=== PATIENT | female | born 1945 ===

== ENCOUNTER 2020-05-06 18:29 | Inpatient (IN) ==
[2020-05-06] MEDS ORDERED: Isovue-370 500 ML BOTTLE IVP ONE (19:25)
[2020-05-06] MEDS ORDERED: 0.9 % Sodium Chloride 500 ML IVC ONE (19:33)
[2020-05-06] MEDS ORDERED: Ondansetron 4 MG/2 ML VIAL IVP ONE (19:34)
[2020-05-06 19:41] LABS: Basophils # 0.1 K/mcL (0.0-0.2); Basophils % 0.7 %; Eosinophils # 0.1 K/mcL (0.0-0.6); Eosinophils % 1.8 %; Hematocrit 34.2 % (35.3-44.9); Immature Granulocytes % 0.6 % (0-4); Lymphocytes # 2.6 K/mcL (0.6-4.6); Lymphocytes % 37.1 %; Mean Corpuscular HGB Conc 32.2 g/dL (31.6-35.5); Mean Corpuscular Hemoglobin 30.5 pg (28.0-33.3); Mean Corpuscular Volume 94.7 fL (83.0-100.0); Mean Platelet Volume 12.8 fL (9.4-12.4); Monocytes # 0.8 K/mcL (0.0-1.3); Neutrophils # 3.5 K/mcL (1.6-8.9); Platelet Count 226 K/mcL (140-400); Red Blood Count 3.61 M/mcL (3.82-4.97); Red Cell Distribution Width 13.3 % (11.5-14.5); Segmented Neutrophils % 48.8 %; White Blood Count 7.1 K/mcL (4.3-11.1)
[2020-05-06 20:05] LABS: Alanine Aminotransferase 6 Units/L (7-52); Albumin 4.4 g/dL (3.5-5.7); Alkaline Phosphatase 41 Units/L (34-104); Aspartate Amino Transferase 9 Units/L (13-39); BUN/Creatinine Ratio 25 (6-26); Bilirubin,Total 0.4 mg/dL (0.3-1.0); Blood Urea Nitrogen 18 mg/dL (8-23); Calcium 9.3 mg/dL (8.6-10.3); Carbon Dioxide 28 mEq/L (23-29); Chloride 102 mEq/L (98-107); Globulin 2.2 g/dL (2.4-3.5); Glucose 127 mg/dL (70-105); Lipase 61 Units/L (11-82); Osmolality,Calculated 293 (280-300); Sodium 140 mEq/L (136-145); Total Protein 6.6 g/dL (6.4-8.9); Troponin I < 0.03 ng/mL (< 0.04); eGFR For African Americans > 60 (> 60); eGFR For Non-African Americans > 60 (> 60)
[2020-05-06] MEDS ORDERED: Potassium Chloride 40 MEQ, Lidocaine 1% 2 ML in 0.9 % Sodium Chloride 500 ML IVPB ONE (21:29)
[2020-05-06 21:40] LABS: Bilirubin,Urine Negative (Negative); Blood,Urine Negative (Negative); Clarity,Urine Clear (Clear); Color,Urine Light-Yellow (Yellow); Glucose,Urine (UA) Normal (Normal); Ketones,Urine 40 mg/dL (Negative); Leukocyte Esterase,Urine Negative (Negative); Nitrite,Urine Negative (Negative); PH,Urine 6.5 pH Units (5.0-8.0); Protein,Urine Negative (Neg-Trace); Specific Gravity,Urine > 1.030 (1.010-1.025); Urobilinogen,Urine Normal (Normal)
[2020-05-06] MEDS ORDERED: Naloxone 0.4 MG/ML INJ IVP PRN (23:10)
[2020-05-06] MEDS: 0.9 % Sodium Chloride 1,000 ML IVC SCH (23:37)
[2020-05-07] MEDS: traZODone 50 MG TABLET PO SCH ×2 (01:33→23:16)
[2020-05-07] MEDS: Acetaminophen 325 MG TABLET PO PRN (03:22)
[2020-05-07] MEDS: Ondansetron 4 MG/2 ML VIAL IVP PRN ×2 (03:23→17:37)
[2020-05-07 03:58] LABS: Basophils # 0.1 K/mcL (0.0-0.2); Basophils % 0.7 %; Eosinophils # 0.1 K/mcL (0.0-0.6); Eosinophils % 1.5 %; Hematocrit 28.3 % (35.3-44.9); INR 1.2; Immature Granulocytes % 0.5 % (0-4); Lymphocytes # 3.2 K/mcL (0.6-4.6); Lymphocytes % 42.6 %; Mean Corpuscular HGB Conc 31.4 g/dL (31.6-35.5); Mean Corpuscular Hemoglobin 29.4 pg (28.0-33.3); Mean Corpuscular Volume 93.4 fL (83.0-100.0); Mean Platelet Volume 12.2 fL (9.4-12.4); Monocytes # 0.7 K/mcL (0.0-1.3); Monocytes % 8.8 %; Neutrophils # 3.5 K/mcL (1.6-8.9); Nucleated Red Blood Cells 0.7 /100 WBC (0); Platelet Count 198 K/mcL (140-400); Prothrombin Time 13.2 Seconds (9.4-12.1); Red Blood Count 3.03 M/mcL (3.82-4.97); Red Cell Distribution Width 13.6 % (11.5-14.5); Segmented Neutrophils % 45.9 %; White Blood Count 7.5 K/mcL (4.3-11.1)
[2020-05-07 04:11] LABS: BUN/Creatinine Ratio 25 (6-26); Blood Urea Nitrogen 14 mg/dL (8-23); Calcium 8.2 mg/dL (8.6-10.3); Carbon Dioxide 29 mEq/L (23-29); Chloride 110 mEq/L (98-107); Glucose 106 mg/dL (70-105); Magnesium 1.9 mg/dL (1.6-2.6); Osmolality,Calculated 295 (280-300); Phosphorous 2.9 mg/dL (2.7-4.5); Potassium 3.6 mEq/L (3.5-5.1); Sodium 142 mEq/L (136-145); eGFR For African Americans > 60 (> 60); eGFR For Non-African Americans > 60 (> 60)
[2020-05-07 04:15] LABS: % Iron Saturation 9 % (15-50); Iron 20 mcg/dL (50-170); Transferrin 167 mg/dL (203-362)
[2020-05-07 04:23] LABS: Hemoglobin 8.9 g/dL (11.5-15.4)
[2020-05-07 04:27] LABS: Ferritin 24 ng/mL (10-120)
[2020-05-07 04:33] LABS: Folate 12.1 ng/mL (3.0-16.0)
[2020-05-07] MEDS ORDERED: *HR* Promethazine 25 MG/ML VIAL IVP ONE (08:13)
[2020-05-07] MEDS ORDERED: Ondansetron 4 MG/2 ML VIAL IVP ONE (08:13)
[2020-05-07] MEDS ORDERED: Temazepam 15 MG CAPSULE PO SCH (09:00)
[2020-05-07] MEDS: Gabapentin 300 MG CAPSULE PO SCH ×3 (09:03→20:01)
[2020-05-07] MEDS: Pantoprazole 40 MG VIAL IVP SCH ×2 (09:11→17:33)
[2020-05-07] MEDS: 0.9 % Sodium Chloride 1,000 ML IVC SCH (10:00)
[2020-05-07 10:13] LABS: Hematocrit 26.8 % (35.3-44.9); Hemoglobin 8.4 g/dL (11.5-15.4)
[2020-05-07 18:54] LABS: Hematocrit 25.9 % (35.3-44.9)
[2020-05-07] MEDS: Temazepam 15 MG CAPSULE PO SCH (23:19)
[2020-05-08] MEDS: Pantoprazole 40 MG VIAL IVP SCH ×2 (05:49→16:57)
[2020-05-08 06:52] LABS: Basophils % 0.5 %; Eosinophils # 0.2 K/mcL (0.0-0.6); Eosinophils % 2.9 %; Hematocrit 26.5 % (35.3-44.9); Hemoglobin 8.3 g/dL (11.5-15.4); Immature Granulocytes % 0.3 % (0-4); Lymphocytes # 3.2 K/mcL (0.6-4.6); Lymphocytes % 53.5 %; Mean Corpuscular HGB Conc 31.3 g/dL (31.6-35.5); Mean Corpuscular Hemoglobin 30.4 pg (28.0-33.3); Mean Corpuscular Volume 97.1 fL (83.0-100.0); Mean Platelet Volume 12.2 fL (9.4-12.4); Monocytes # 0.5 K/mcL (0.0-1.3); Monocytes % 8.6 %; Nucleated Red Blood Cells 0.5 /100 WBC (0); Platelet Count 187 K/mcL (140-400); Red Blood Count 2.73 M/mcL (3.82-4.97); Red Cell Distribution Width 14.1 % (11.5-14.5); Segmented Neutrophils % 34.2 %; White Blood Count 5.9 K/mcL (4.3-11.1)
[2020-05-08 07:06] LABS: BUN/Creatinine Ratio 9 (6-26); Blood Urea Nitrogen 6 mg/dL (8-23); Calcium 8.4 mg/dL (8.6-10.3); Carbon Dioxide 27 mEq/L (23-29); Chloride 113 mEq/L (98-107); Glucose 99 mg/dL (70-105); Osmolality,Calculated 296 (280-300); Phosphorous 3.4 mg/dL (2.7-4.5); Potassium 3.2 mEq/L (3.5-5.1); Sodium 144 mEq/L (136-145); eGFR For African Americans > 60 (> 60); eGFR For Non-African Americans > 60 (> 60)
[2020-05-08] MEDS ORDERED: Fluticasone Propionate Nasal 50 MCG/SPRAY BOTTLE NS PRN (07:52)
[2020-05-08] MEDS ORDERED: Iron Sucrose Complex 200 MG in 0.9 % Sodium Chloride 100 ML IVPB ONE (07:55)
[2020-05-08] MEDS ORDERED: Cyanocobalamin (B-12) 1,000 MCG/ML VIAL IM ONE (07:56)
[2020-05-08] MEDS: Ascorbic Acid 500 MG TABLET PO SCH (09:07)
[2020-05-08] MEDS: Gabapentin 300 MG CAPSULE PO SCH ×3 (09:13→20:56)
[2020-05-08] MEDS ORDERED: Potassium Chloride Elixir 20 MEQ/15 ML UDC PO ONE (09:28)
[2020-05-08 09:44] LABS: Immature Reticulocyte % 41.6 % (11.0-38.0); Retculocyte # 0.18 M/mcL (0.05-0.10); Reticulocyte % 6.3 % (1.6-2.8)
[2020-05-08] MEDS ORDERED: *HR* Propofol 200 MG/20 ML VIAL IVP ONE (09:50)
[2020-05-08 09:58] LABS: Lactate Dehydrogenase 142 Units/L (140-271)
[2020-05-08 12:17] LABS: Triglycerides 81 mg/dL (< 150)
[2020-05-08] MEDS ORDERED: *HR* Dextrose 50 % in Water (Vial) 50 ML VIAL IVP PRN (12:35)
[2020-05-08] MEDS ORDERED: Dextrose Gel 15 GM/37.5 ML TUBE PO PRN ×2 (12:35)
[2020-05-08] MEDS ORDERED: D5% in Water 1,000 ML IVC PRN (12:35)
[2020-05-08] MEDS ORDERED: D10% in Water 500 ML IVC PRN (12:44)
[2020-05-08] MEDS ORDERED: Lidocaine -MPF 1% 5 ML AMPUL INFILT ONE (13:42)
[2020-05-08] MEDS: Insulin LISPRO 300 UNITS/3 ML VIAL SQ SCH ×3 (13:46→21:36)
[2020-05-08] MEDS ORDERED: Clinimix E 5%-15% SOLUTION 2,000 ML with MVI, adult with vitamin K 10 ML IVC SCH (17:00)
[2020-05-08] MEDS: traZODone 50 MG TABLET PO SCH (20:56)
[2020-05-08] MEDS: Temazepam 15 MG CAPSULE PO SCH (20:56)
[2020-05-09] MEDS: Insulin LISPRO 300 UNITS/3 ML VIAL SQ SCH ×6 (00:29→20:37)
[2020-05-09] MEDS: Acetaminophen 325 MG TABLET PO PRN ×2 (01:50→21:54)
[2020-05-09 02:29] LABS: Basophils % 0.4 %; Eosinophils % 0.2 %; Hemoglobin 8.9 g/dL (11.5-15.4); Immature Granulocytes % 1.5 % (0-4); Lymphocytes % 12.1 %; Mean Corpuscular HGB Conc 31.8 g/dL (31.6-35.5); Mean Corpuscular Hemoglobin 30.6 pg (28.0-33.3); Mean Corpuscular Volume 96.2 fL (83.0-100.0); Mean Platelet Volume 12.6 fL (9.4-12.4); Monocytes # 0.6 K/mcL (0.0-1.3); Monocytes % 7.1 %; Neutrophils # 6.6 K/mcL (1.6-8.9); Nucleated Red Blood Cells 1.7 /100 WBC (0); Platelet Count 218 K/mcL (140-400); Red Blood Count 2.91 M/mcL (3.82-4.97); Red Cell Distribution Width 14.1 % (11.5-14.5); Segmented Neutrophils % 78.7 %; White Blood Count 8.4 K/mcL (4.3-11.1)
[2020-05-09 02:47] LABS: BUN/Creatinine Ratio 13 (6-26); Blood Urea Nitrogen 8 mg/dL (8-23); Calcium 8.4 mg/dL (8.6-10.3); Carbon Dioxide 29 mEq/L (23-29); Chloride 106 mEq/L (98-107); Glucose 135 mg/dL (70-105); Magnesium 1.9 mg/dL (1.6-2.6); Osmolality,Calculated 294 (280-300); Phosphorous 3.5 mg/dL (2.7-4.5); Sodium 142 mEq/L (136-145); eGFR For African Americans > 60 (> 60); eGFR For Non-African Americans > 60 (> 60)
[2020-05-09] MEDS: Pantoprazole 40 MG VIAL IVP SCH ×2 (05:06→16:55)
[2020-05-09] MEDS: Cholecalciferol (D-3) 1,000 UNIT (25MCG) TABLET PO SCH (11:14)
[2020-05-09] MEDS: Gabapentin 300 MG CAPSULE PO SCH ×3 (11:14→20:46)
[2020-05-09] MEDS: Ascorbic Acid 500 MG TABLET PO SCH (11:14)
[2020-05-09] MEDS ORDERED: Clinimix E 5%-15% SOLUTION 2,000 ML with MVI, adult with vitamin K 10 ML IVC SCH (17:00)
[2020-05-09] MEDS: Temazepam 15 MG CAPSULE PO SCH (20:46)
[2020-05-09] MEDS: traZODone 50 MG TABLET PO SCH (20:47)
[2020-05-09] MEDS: Topiramate 25 MG TABLET PO PRN (20:50)
[2020-05-10] MEDS: Insulin LISPRO 300 UNITS/3 ML VIAL SQ SCH ×6 (01:05→21:31)
[2020-05-10 04:12] LABS: BUN/Creatinine Ratio 30 (6-26); Blood Urea Nitrogen 14 mg/dL (8-23); Calcium 8.1 mg/dL (8.6-10.3); Carbon Dioxide 29 mEq/L (23-29); Chloride 108 mEq/L (98-107); Glucose 90 mg/dL (70-105); Osmolality,Calculated 298 (280-300); Phosphorous 4.9 mg/dL (2.7-4.5); Potassium 3.5 mEq/L (3.5-5.1); Sodium 144 mEq/L (136-145); eGFR For African Americans > 60 (> 60); eGFR For Non-African Americans > 60 (> 60)
[2020-05-10] MEDS: Pantoprazole 40 MG VIAL IVP SCH ×2 (05:51→17:34)
[2020-05-10] MEDS: Gabapentin 300 MG CAPSULE PO SCH ×3 (08:01→21:34)
[2020-05-10] MEDS: Cholecalciferol (D-3) 1,000 UNIT (25MCG) TABLET PO SCH (08:01)
[2020-05-10] MEDS: Ascorbic Acid 500 MG TABLET PO SCH (08:01)
[2020-05-10] MEDS ORDERED: Iron Sucrose Complex 400 MG in 0.9 % Sodium Chloride 250 ML IVPB ONE (12:03)
[2020-05-10] MEDS ORDERED: Cyanocobalamin (B-12) 1,000 MCG/ML VIAL SQ ONE (12:03)
[2020-05-10] MEDS ORDERED: Clinimix 5%-20% SOLUTION 2,000 ML with MVI, adult with vitamin K 10 ML, Sodium Chlori... IVC SCH (17:00)
[2020-05-10] MEDS: traZODone 50 MG TABLET PO SCH (21:33)
[2020-05-10] MEDS: Temazepam 15 MG CAPSULE PO SCH (21:33)
[2020-05-11] MEDS: Insulin LISPRO 300 UNITS/3 ML VIAL SQ SCH ×6 (00:47→22:00)
[2020-05-11 04:03] LABS: Basophils % 0.4 %; Eosinophils # 0.1 K/mcL (0.0-0.6); Eosinophils % 2.6 %; Hematocrit 29.1 % (35.3-44.9); Immature Granulocytes % 0.8 % (0-4); Lymphocytes # 2.2 K/mcL (0.6-4.6); Lymphocytes % 43.6 %; Mean Corpuscular HGB Conc 30.9 g/dL (31.6-35.5); Mean Corpuscular Hemoglobin 29.6 pg (28.0-33.3); Mean Corpuscular Volume 95.7 fL (83.0-100.0); Mean Platelet Volume 12.4 fL (9.4-12.4); Monocytes # 0.5 K/mcL (0.0-1.3); Monocytes % 10.8 %; Neutrophils # 2.1 K/mcL (1.6-8.9); Nucleated Red Blood Cells 0.8 /100 WBC (0); Platelet Count 200 K/mcL (140-400); Red Blood Count 3.04 M/mcL (3.82-4.97); Red Cell Distribution Width 14.7 % (11.5-14.5); Segmented Neutrophils % 41.8 %
[2020-05-11 04:21] LABS: BUN/Creatinine Ratio 35 (6-26); Blood Urea Nitrogen 16 mg/dL (8-23); Calcium 8.4 mg/dL (8.6-10.3); Carbon Dioxide 30 mEq/L (23-29); Chloride 105 mEq/L (98-107); Glucose 114 mg/dL (70-105); Magnesium 2.3 mg/dL (1.6-2.6); Osmolality,Calculated 298 (280-300); Phosphorous 4.4 mg/dL (2.7-4.5); Potassium 3.4 mEq/L (3.5-5.1); Sodium 143 mEq/L (136-145); eGFR For African Americans > 60 (> 60); eGFR For Non-African Americans > 60 (> 60)
[2020-05-11] MEDS: Pantoprazole 40 MG VIAL IVP SCH ×2 (06:04→17:37)
[2020-05-11] MEDS: Cholecalciferol (D-3) 1,000 UNIT (25MCG) TABLET PO SCH (07:10)
[2020-05-11] MEDS: Acetaminophen 325 MG TABLET PO PRN (07:10)
[2020-05-11] MEDS: Gabapentin 300 MG CAPSULE PO SCH ×3 (07:11→21:56)
[2020-05-11] MEDS: Ascorbic Acid 500 MG TABLET PO SCH (07:11)
[2020-05-11] MEDS ORDERED: Potassium Chloride 20 MEQ, Lidocaine 1% 2 ML in 0.9 % Sodium Chloride 250 ML IVPB ONE (07:38)
[2020-05-11] MEDS ORDERED: Clinimix 5%-20% SOLUTION 2,000 ML with MVI, adult with vitamin K 10 ML, Sodium Chlori... IVC SCH (17:00)
[2020-05-11] MEDS: traZODone 50 MG TABLET PO SCH (21:57)
[2020-05-11] MEDS: Temazepam 15 MG CAPSULE PO SCH (21:59)
[2020-05-12] MEDS: Insulin LISPRO 300 UNITS/3 ML VIAL SQ SCH ×6 (00:52→20:44)
[2020-05-12] MEDS: Acetaminophen 325 MG TABLET PO PRN (02:02)
[2020-05-12 05:15] LABS: Basophils % 0.9 %; Eosinophils # 0.2 K/mcL (0.0-0.6); Eosinophils % 3.2 %; Hematocrit 29.9 % (35.3-44.9); Hemoglobin 9.3 g/dL (11.5-15.4); Immature Granulocytes % 0.6 % (0-4); Lymphocytes % 43.8 %; Mean Corpuscular HGB Conc 31.1 g/dL (31.6-35.5); Mean Corpuscular Volume 96.5 fL (83.0-100.0); Mean Platelet Volume 12.6 fL (9.4-12.4); Monocytes # 0.5 K/mcL (0.0-1.3); Monocytes % 11.2 %; Neutrophils # 1.9 K/mcL (1.6-8.9); Platelet Count 188 K/mcL (140-400); Red Cell Distribution Width 14.9 % (11.5-14.5); Segmented Neutrophils % 40.3 %; White Blood Count 4.6 K/mcL (4.3-11.1)
[2020-05-12 05:30] LABS: BUN/Creatinine Ratio 42 (6-26); Blood Urea Nitrogen 19 mg/dL (8-23); Calcium 8.4 mg/dL (8.6-10.3); Carbon Dioxide 25 mEq/L (23-29); Chloride 108 mEq/L (98-107); Glucose 128 mg/dL (70-105); Magnesium 2.2 mg/dL (1.6-2.6); Osmolality,Calculated 294 (280-300); Phosphorous 3.7 mg/dL (2.7-4.5); Potassium 3.6 mEq/L (3.5-5.1); Sodium 140 mEq/L (136-145); eGFR For African Americans > 60 (> 60); eGFR For Non-African Americans > 60 (> 60)
[2020-05-12] MEDS: Topiramate 25 MG TABLET PO PRN ×2 (05:50→19:55)
[2020-05-12] MEDS: Pantoprazole 40 MG VIAL IVP SCH ×2 (05:50→16:21)
[2020-05-12] MEDS: Ascorbic Acid 500 MG TABLET PO SCH (07:55)
[2020-05-12] MEDS: Gabapentin 300 MG CAPSULE PO SCH ×3 (07:55→19:55)
[2020-05-12] MEDS: Cholecalciferol (D-3) 1,000 UNIT (25MCG) TABLET PO SCH (07:55)
[2020-05-12] MEDS ORDERED: Clinimix 5%-20% SOLUTION 2,000 ML with MVI, adult with vitamin K 10 ML, Sodium Chlori... IVC SCH (17:00)
[2020-05-12] MEDS: Temazepam 15 MG CAPSULE PO SCH (19:55)
[2020-05-12] MEDS: traZODone 50 MG TABLET PO SCH (19:55)
[2020-05-13] MEDS: Insulin LISPRO 300 UNITS/3 ML VIAL SQ SCH ×6 (00:35→23:19)
[2020-05-13 04:21] LABS: Basophils # 0.1 K/mcL (0.0-0.2); Basophils % 0.9 %; Eosinophils # 0.2 K/mcL (0.0-0.6); Eosinophils % 3.6 %; Hematocrit 31.7 % (35.3-44.9); Hemoglobin 9.8 g/dL (11.5-15.4); Immature Granulocytes % 0.9 % (0-4); Lymphocytes # 2.1 K/mcL (0.6-4.6); Lymphocytes % 38.7 %; Mean Corpuscular HGB Conc 30.9 g/dL (31.6-35.5); Mean Corpuscular Volume 96.9 fL (83.0-100.0); Mean Platelet Volume 12.9 fL (9.4-12.4); Monocytes # 0.9 K/mcL (0.0-1.3); Monocytes % 15.9 %; Neutrophils # 2.1 K/mcL (1.6-8.9); Nucleated Red Blood Cells 0.6 /100 WBC (0); Platelet Count 182 K/mcL (140-400); Red Blood Count 3.27 M/mcL (3.82-4.97); Red Cell Distribution Width 14.6 % (11.5-14.5); White Blood Count 5.4 K/mcL (4.3-11.1)
[2020-05-13 04:22] LABS: BUN/Creatinine Ratio 45 (6-26); Blood Urea Nitrogen 22 mg/dL (8-23); Calcium 8.5 mg/dL (8.6-10.3); Carbon Dioxide 25 mEq/L (23-29); Chloride 107 mEq/L (98-107); Glucose 72 mg/dL (70-105); Magnesium 2.2 mg/dL (1.6-2.6); Osmolality,Calculated 292 (280-300); Phosphorous 3.3 mg/dL (2.7-4.5); Potassium 3.8 mEq/L (3.5-5.1); Sodium 140 mEq/L (136-145); eGFR For African Americans > 60 (> 60); eGFR For Non-African Americans > 60 (> 60)
[2020-05-13] MEDS: Pantoprazole 40 MG VIAL IVP SCH ×2 (05:24→17:07)
[2020-05-13] MEDS ORDERED: *HR* HYDROmorphone PF 0.5 MG/0.5 ML SYRINGE IVP PRN (07:14)
[2020-05-13] MEDS ORDERED: *HR* Promethazine 25 MG/ML VIAL IVP PRN (07:14)
[2020-05-13] MEDS ORDERED: *HR* OxyCODONE Immed Rel 5 MG TABLET PO PRN (07:14)
[2020-05-13] MEDS ORDERED: Ondansetron 4 MG/2 ML VIAL IVP ONE (07:14)
[2020-05-13] MEDS: Gabapentin 300 MG CAPSULE PO SCH (07:37)
[2020-05-13] MEDS: Cholecalciferol (D-3) 1,000 UNIT (25MCG) TABLET PO SCH (07:38)
[2020-05-13] MEDS: Ascorbic Acid 500 MG TABLET PO SCH (07:38)
[2020-05-13] MEDS: Ringers Solution, Lactated 1,000 ML IVC ONE ×2 (08:37→09:31)
[2020-05-13] MEDS ORDERED: Clindamycin 900 MG/50 ML 900 MG/50 ML IV.SOLN IVPB ONE ×2 (08:40→08:59)
[2020-05-13] MEDS ORDERED: Lidocaine -MPF 2% 2 ML VIAL ONE (09:28)
[2020-05-13] MEDS ORDERED: *HR* Midazolam HCl 2 MG/2 ML VIAL ONE (09:28)
[2020-05-13] MEDS ORDERED: *HR* Propofol 200 MG/20 ML VIAL IVP ONE (09:28)
[2020-05-13] MEDS ORDERED: *HR* Rocuronium Bromide 50 MG/5 ML VIAL ONE (09:28)
[2020-05-13] MEDS ORDERED: *HR* FentaNYL (PF) 100 MCG/2 ML VIAL ONE (09:28)
[2020-05-13] MEDS ORDERED: *HR* PHENYLEPHRINE 1,000 MCG/10 ML SYRINGE IVP ONE (09:29)
[2020-05-13] MEDS ORDERED: Dextrose Gel 15 GM/37.5 ML TUBE PO PRN ×2 (10:43)
[2020-05-13] MEDS ORDERED: Ondansetron 4 MG/2 ML VIAL IVP PRN (10:43)
[2020-05-13] MEDS ORDERED: Naloxone 0.4 MG/ML INJ IVP PRN (10:43)
[2020-05-13] MEDS ORDERED: Clinimix 5%-20% SOLUTION 2,000 ML with MVI, adult with vitamin K 10 ML, Sodium Chlori... IVC SCH (10:43)
[2020-05-13] MEDS ORDERED: D5% in Water 1,000 ML IVC PRN (10:43)
[2020-05-13] MEDS ORDERED: Fluticasone Propionate Nasal 50 MCG/SPRAY BOTTLE NS PRN (10:43)
[2020-05-13] MEDS ORDERED: D10% in Water 500 ML IVC PRN (10:43)
[2020-05-13] MEDS ORDERED: *HR* Dextrose 50 % in Water (Vial) 50 ML VIAL IVP PRN (10:43)
[2020-05-13] MEDS ORDERED: *HR* FentaNYL (PF) 100 MCG/2 ML VIAL IVP ONE (11:40)
[2020-05-13] MEDS: Acetaminophen IV 1,000 MG/100 ML INFUS..BTL IVPB SCH ×2 (11:56→17:21)
[2020-05-13] MEDS ORDERED: Clinimix E 5%-20% SOLUTION 2,000 ML with MVI, adult with vitamin K 10 ML, Trace Eleme... IVC SCH ×2 (17:00)
[2020-05-13] MEDS: *HR* Heparin 5,000 UNIT/ML VIAL SQ SCH (17:06)
[2020-05-13] MEDS ORDERED: Chloraseptic Spray 177 ML BOTTLE MM PRN (23:47)
[2020-05-14] MEDS: Acetaminophen IV 1,000 MG/100 ML INFUS..BTL IVPB SCH ×4 (00:42→17:44)
[2020-05-14] MEDS: Insulin LISPRO 300 UNITS/3 ML VIAL SQ SCH ×6 (00:47→21:33)
[2020-05-14 05:16] LABS: BUN/Creatinine Ratio 44 (6-26); Blood Urea Nitrogen 20 mg/dL (8-23); Calcium 8.2 mg/dL (8.6-10.3); Carbon Dioxide 24 mEq/L (23-29); Chloride 104 mEq/L (98-107); Glucose 117 mg/dL (70-105); Magnesium 1.8 mg/dL (1.6-2.6); Osmolality,Calculated 286 (280-300); Phosphorous 2.6 mg/dL (2.7-4.5); Potassium 3.3 mEq/L (3.5-5.1); Sodium 136 mEq/L (136-145); eGFR For African Americans > 60 (> 60); eGFR For Non-African Americans > 60 (> 60)
[2020-05-14] MEDS: *HR* Heparin 5,000 UNIT/ML VIAL SQ SCH ×2 (06:11→17:39)
[2020-05-14] MEDS: Pantoprazole 40 MG VIAL IVP SCH ×2 (06:11→17:40)
[2020-05-14] MEDS ORDERED: Saliva Stimulant 100ml BOTTLE PO PRN (08:47)
[2020-05-14] MEDS: Ketorolac 15 MG/ML VIAL IVP SCH ×2 (11:22→17:39)
[2020-05-14] MEDS ORDERED: Clinimix E 5%-20% SOLUTION 2,000 ML with MVI, adult with vitamin K 10 ML, Trace Eleme... IVC SCH (17:00)
[2020-05-15] MEDS: Acetaminophen IV 1,000 MG/100 ML INFUS..BTL IVPB SCH ×6 (00:56→23:38)
[2020-05-15] MEDS: Ketorolac 15 MG/ML VIAL IVP SCH ×5 (01:01→23:35)
[2020-05-15] MEDS: Insulin LISPRO 300 UNITS/3 ML VIAL SQ SCH ×6 (01:01→20:59)
[2020-05-15 01:44] LABS: Basophils % 0.1 %; Eosinophils % 0.1 %; Hematocrit 32.3 % (35.3-44.9); Hemoglobin 10.1 g/dL (11.5-15.4); Immature Granulocytes % 0.1 % (0-4); Lymphocytes # 0.7 K/mcL (0.6-4.6); Mean Corpuscular HGB Conc 31.3 g/dL (31.6-35.5); Mean Corpuscular Hemoglobin 29.8 pg (28.0-33.3); Mean Corpuscular Volume 95.3 fL (83.0-100.0); Mean Platelet Volume 13.4 fL (9.4-12.4); Monocytes # 1.5 K/mcL (0.0-1.3); Monocytes % 17.9 %; Neutrophils # 6.1 K/mcL (1.6-8.9); Nucleated Red Blood Cells 0.2 /100 WBC (0); Platelet Count 181 K/mcL (140-400); Red Blood Count 3.39 M/mcL (3.82-4.97); Red Cell Distribution Width 14.7 % (11.5-14.5); Segmented Neutrophils % 73.8 %; White Blood Count 8.3 K/mcL (4.3-11.1)
[2020-05-15 01:59] LABS: BUN/Creatinine Ratio 42 (6-26); Blood Urea Nitrogen 20 mg/dL (8-23); Calcium 7.9 mg/dL (8.6-10.3); Carbon Dioxide 25 mEq/L (23-29); Chloride 102 mEq/L (98-107); Glucose 131 mg/dL (70-105); Magnesium 1.8 mg/dL (1.6-2.6); Osmolality,Calculated 282 (280-300); Potassium 3.4 mEq/L (3.5-5.1); Sodium 134 mEq/L (136-145); eGFR For African Americans > 60 (> 60); eGFR For Non-African Americans > 60 (> 60)
[2020-05-15 02:05] LABS: Platelet Estimate Normal (Normal)
[2020-05-15] MEDS: Pantoprazole 40 MG VIAL IVP SCH ×2 (05:41→17:39)
[2020-05-15] MEDS: *HR* Heparin 5,000 UNIT/ML VIAL SQ SCH ×2 (05:42→17:38)
[2020-05-15] MEDS ORDERED: Potassium Chloride 20 MEQ, Lidocaine 1% 2 ML in 0.9 % Sodium Chloride 250 ML IVPB ONE (07:55)
[2020-05-15] MEDS ORDERED: 0.9 % Sodium Chloride 500 ML IV ONE ×2 (12:55→18:17)
[2020-05-15] MEDS ORDERED: Clinimix E 5%-20% SOLUTION 2,000 ML with MVI, adult with vitamin K 10 ML, Trace Eleme... IVC SCH (17:00)
[2020-05-16] MEDS: Insulin LISPRO 300 UNITS/3 ML VIAL SQ SCH ×6 (00:06→23:39)
[2020-05-16 03:24] LABS: Basophils % 0.3 %; Immature Granulocytes % 0.6 % (0-4); Mean Corpuscular HGB Conc 31.2 g/dL (31.6-35.5); Mean Corpuscular Hemoglobin 29.8 pg (28.0-33.3); Mean Corpuscular Volume 95.5 fL (83.0-100.0); Mean Platelet Volume 13.7 fL (9.4-12.4); Segmented Neutrophils % 68.1 %
[2020-05-16 03:26] LABS: Eosinophils # 0.2 K/mcL (0.0-0.6); Eosinophils % 2.4 %; Hematocrit 27.6 % (35.3-44.9); Hemoglobin 8.6 g/dL (11.5-15.4); Immature Platelets 20.5 % (1.1-6.1); Lymphocytes # 0.8 K/mcL (0.6-4.6); Lymphocytes % 12.2 %; Monocytes # 1.1 K/mcL (0.0-1.3); Monocytes % 16.4 %; Neutrophils # 4.4 K/mcL (1.6-8.9); Platelet Count 170 K/mcL (140-400); Red Blood Count 2.89 M/mcL (3.82-4.97); White Blood Count 6.5 K/mcL (4.3-11.1)
[2020-05-16 03:39] LABS: Large Platelets Present (Not Present); Platelet Estimate Normal (Normal); Polychromasia 1+ (Not Present)
[2020-05-16 03:43] LABS: BUN/Creatinine Ratio 37 (6-26); Blood Urea Nitrogen 22 mg/dL (8-23); Calcium 8.1 mg/dL (8.6-10.3); Carbon Dioxide 26 mEq/L (23-29); Chloride 104 mEq/L (98-107); Glucose 161 mg/dL (70-105); Magnesium 1.9 mg/dL (1.6-2.6); Osmolality,Calculated 289 (280-300); Phosphorous 3.1 mg/dL (2.7-4.5); Potassium 3.4 mEq/L (3.5-5.1); Sodium 136 mEq/L (136-145); eGFR For African Americans > 60 (> 60); eGFR For Non-African Americans > 60 (> 60)
[2020-05-16] MEDS: Ketorolac 15 MG/ML VIAL IVP SCH (05:39)
[2020-05-16] MEDS: *HR* Heparin 5,000 UNIT/ML VIAL SQ SCH (05:45)
[2020-05-16] MEDS: Acetaminophen IV 1,000 MG/100 ML INFUS..BTL IVPB SCH ×3 (05:45→18:07)
[2020-05-16] MEDS: Pantoprazole 40 MG VIAL IVP SCH ×2 (05:48→18:04)
[2020-05-16] MEDS ORDERED: 0.9 % Sodium Chloride 500 ML IVC ONE (07:29)
[2020-05-16] MEDS ORDERED: Potassium Chloride 20 MEQ, Lidocaine 1% 2 ML in 0.9 % Sodium Chloride 250 ML IVPB ONE (07:46)
[2020-05-16] MEDS ORDERED: *HR* Metoprolol 5 MG/5 ML VIAL IVP ONE (12:25)
[2020-05-16 12:35] LABS: Hematocrit 27.9 % (35.3-44.9); Hemoglobin 8.4 g/dL (11.5-15.4)
[2020-05-16] MEDS: Isovue-370 500 ML BOTTLE IVP ONE ×2 (13:48→13:53)
[2020-05-16] MEDS ORDERED: 0.9 % Sodium Chloride 1,000 ML IV ONE (15:09)
[2020-05-16] MEDS ORDERED: Clinimix E 5%-20% SOLUTION 2,000 ML with MVI, adult with vitamin K 10 ML, Trace Eleme... IVC SCH (17:00)
[2020-05-16 18:02] LABS: Bilirubin,Urine Negative (Negative); Blood,Urine Trace (Negative); Clarity,Urine Clear (Clear); Color,Urine Light-Yellow (Yellow); Glucose,Urine (UA) Normal (Normal); Ketones,Urine Negative (Negative); Leukocyte Esterase,Urine Trace (Negative); Mucus,Urine Few per lpf (None-Few); Nitrite,Urine Negative (Negative); PH,Urine 6.5 pH Units (5.0-8.0); Protein,Urine 70 mg/dL (Neg-Trace); Specific Gravity,Urine > 1.030 (1.010-1.025); Urobilinogen,Urine Normal (Normal)
[2020-05-16] MEDS: *HR* LORazepam 2 MG/ML VIAL IVP PRN (21:34)
[2020-05-16] MEDS: 0.9 % Sodium Chloride 1,000 ML IVC SCH (21:37)
[2020-05-17] MEDS: Acetaminophen IV 1,000 MG/100 ML INFUS..BTL IVPB SCH ×4 (00:51→17:45)
[2020-05-17] MEDS: MetroNIDAZOLE 500 MG/100 ML 500 MG/100 ML BAG IVPB SCH ×3 (00:55→17:13)
[2020-05-17] MEDS: Insulin LISPRO 300 UNITS/3 ML VIAL SQ SCH ×6 (01:00→20:33)
[2020-05-17 04:30] LABS: Red Cell Distribution Width 15.1 % (11.5-14.5)
[2020-05-17 04:32] LABS: Basophils % 0.3 %; Immature Platelets 16.4 % (1.1-6.1)
[2020-05-17 04:46] LABS: BUN/Creatinine Ratio 33 (6-26); Blood Urea Nitrogen 17 mg/dL (8-23); Calcium 7.6 mg/dL (8.6-10.3); Carbon Dioxide 25 mEq/L (23-29); Chloride 106 mEq/L (98-107); Glucose 94 mg/dL (70-105); Magnesium 1.8 mg/dL (1.6-2.6); Osmolality,Calculated 285 (280-300); Phosphorous 3.4 mg/dL (2.7-4.5); Potassium 3.4 mEq/L (3.5-5.1); Sodium 137 mEq/L (136-145); eGFR For African Americans > 60 (> 60); eGFR For Non-African Americans > 60 (> 60)
[2020-05-17 05:06] LABS: Eosinophils # 0.2 K/mcL (0.0-0.6); Eosinophils % 3.2 %; Hematocrit 23.6 % (35.3-44.9); Hemoglobin 7.1 g/dL (11.5-15.4); Immature Granulocytes % 0.9 % (0-4); Lymphocytes # 1.1 K/mcL (0.6-4.6); Lymphocytes % 16.5 %; Mean Corpuscular HGB Conc 30.1 g/dL (31.6-35.5); Mean Corpuscular Hemoglobin 29.5 pg (28.0-33.3); Mean Corpuscular Volume 97.9 fL (83.0-100.0); Mean Platelet Volume 13.5 fL (9.4-12.4); Monocytes # 0.9 K/mcL (0.0-1.3); Neutrophils # 4.2 K/mcL (1.6-8.9); Nucleated Red Blood Cells 0.8 /100 WBC (0); Platelet Count 182 K/mcL (140-400); Red Blood Count 2.41 M/mcL (3.82-4.97); Segmented Neutrophils % 65.1 %; White Blood Count 6.5 K/mcL (4.3-11.1)
[2020-05-17 05:10] LABS: Large Platelets Present (Not Present); Platelet Estimate Normal (Normal); Polychromasia 1+ (Not Present)
[2020-05-17] MEDS: Pantoprazole 40 MG VIAL IVP SCH ×2 (05:46→17:08)
[2020-05-17] MEDS: *HR* LORazepam 2 MG/ML VIAL IVP PRN (08:00)
[2020-05-17] MEDS ORDERED: Potassium Chloride 20 MEQ, Lidocaine 1% 2 ML in 0.9 % Sodium Chloride 250 ML IVPB ONE (08:04)
[2020-05-17] MEDS ORDERED: NON-FORMULARY MEDICATION 1 EACH EACH (Duloxetine Hcl 60 MG) PO SCH (09:00)
[2020-05-17] MEDS ORDERED: 0.9 % Sodium Chloride 250 ML ONE ×2 (09:47→20:23)
[2020-05-17] MEDS: 0.9 % Sodium Chloride 1,000 ML IVC SCH ×2 (10:00→17:12)
[2020-05-17] MEDS ORDERED: 0.9 % Sodium Chloride 500 ML IVC ONE (10:57)
[2020-05-17] MEDS ORDERED: Calcium Gluconate 1gm/50mL 1 GM/50 ML BAG IVPB ONE (12:42)
[2020-05-17 14:26] LABS: Hemoglobin 7.9 g/dL (11.5-15.4)
[2020-05-17] MEDS ORDERED: Clinimix E 5%-20% SOLUTION 2,000 ML with MVI, adult with vitamin K 10 ML, Trace Eleme... IVC SCH (17:00)
[2020-05-17] MEDS ORDERED: *HR* Metoprolol 5 MG/5 ML VIAL IVP ONE ×2 (21:57→23:45)
[2020-05-18] MEDS: MetroNIDAZOLE 500 MG/100 ML 500 MG/100 ML BAG IVPB SCH ×3 (00:43→17:14)
[2020-05-18] MEDS: Acetaminophen IV 1,000 MG/100 ML INFUS..BTL IVPB SCH ×4 (00:44→18:13)
[2020-05-18] MEDS: Insulin LISPRO 300 UNITS/3 ML VIAL SQ SCH ×6 (00:45→20:03)
[2020-05-18] MEDS ORDERED: *HR* Metoprolol 5 MG/5 ML VIAL IVP ONE (01:49)
[2020-05-18] MEDS: 0.9 % Sodium Chloride 1,000 ML IVC SCH ×2 (04:03→14:19)
[2020-05-18 04:43] LABS: Basophils % 0.4 %; Eosinophils # 0.2 K/mcL (0.0-0.6); Eosinophils % 2.9 %; Hematocrit 28.2 % (35.3-44.9); Hemoglobin 8.9 g/dL (11.5-15.4); Immature Granulocytes % 3.9 % (0-4); Lymphocytes # 0.9 K/mcL (0.6-4.6); Lymphocytes % 13.5 %; Mean Corpuscular HGB Conc 31.6 g/dL (31.6-35.5); Mean Corpuscular Hemoglobin 29.3 pg (28.0-33.3); Mean Corpuscular Volume 92.8 fL (83.0-100.0); Mean Platelet Volume 12.7 fL (9.4-12.4); Monocytes # 1.2 K/mcL (0.0-1.3); Neutrophils # 4.4 K/mcL (1.6-8.9); Nucleated Red Blood Cells 0.4 /100 WBC (0); Platelet Count 181 K/mcL (140-400); Red Blood Count 3.04 M/mcL (3.82-4.97); Red Cell Distribution Width 15.5 % (11.5-14.5); Segmented Neutrophils % 62.3 %
[2020-05-18 05:04] LABS: BUN/Creatinine Ratio 30 (6-26); Blood Urea Nitrogen 13 mg/dL (8-23); Calcium 7.4 mg/dL (8.6-10.3); Carbon Dioxide 24 mEq/L (23-29); Chloride 104 mEq/L (98-107); Glucose 102 mg/dL (70-105); Magnesium 1.8 mg/dL (1.6-2.6); Osmolality,Calculated 282 (280-300); Phosphorous 4.3 mg/dL (2.7-4.5); Potassium 3.2 mEq/L (3.5-5.1); Sodium 136 mEq/L (136-145); eGFR For African Americans > 60 (> 60); eGFR For Non-African Americans > 60 (> 60)
[2020-05-18] MEDS: Pantoprazole 40 MG VIAL IVP SCH ×2 (06:25→17:13)
[2020-05-18] MEDS ORDERED: Potassium Chloride 40 MEQ, Lidocaine 1% 2 ML in 0.9 % Sodium Chloride 500 ML IVPB ONE ×2 (06:28→07:34)
[2020-05-18] MEDS ORDERED: Calcium Gluconate 1gm/50mL 1 GM/50 ML BAG IVPB SCH (08:00)
[2020-05-18] MEDS: Calcium Gluconate 1gm/50mL 1 GM/50 ML BAG IVPB SCH ×2 (08:12→09:52)
[2020-05-18] MEDS ORDERED: Metoprolol XL (24 HR) Succ 25 MG TAB.ER.24H PO SCH (11:30)
[2020-05-18] MEDS ORDERED: Clinimix E 5%-20% SOLUTION 2,000 ML with MVI, adult with vitamin K 10 ML, Trace Eleme... IVC SCH (17:00)
[2020-05-18] MEDS: Metoprolol XL (24 HR) Succ 25 MG TAB.ER.24H PO SCH (20:03)
[2020-05-18 21:56] LABS: Bacteria,Urine Few per hpf (None-Few); Bilirubin,Urine Negative (Negative); Blood,Urine Trace (Negative); Clarity,Urine Clear (Clear); Color,Urine Colorless (Yellow); Glucose,Urine (UA) Normal (Normal); Ketones,Urine Negative (Negative); Leukocyte Esterase,Urine Negative (Negative); Mucus,Urine Few per lpf (None-Few); Nitrite,Urine Negative (Negative); PH,Urine 6.5 pH Units (5.0-8.0); Protein,Urine Negative (Neg-Trace); Specific Gravity,Urine 1.007 (1.010-1.025); Urobilinogen,Urine Normal (Normal); WBC,Urine 0-3 per hpf (0-3)
[2020-05-19] MEDS: MetroNIDAZOLE 500 MG/100 ML 500 MG/100 ML BAG IVPB SCH ×2 (00:01→09:34)
[2020-05-19] MEDS: Insulin LISPRO 300 UNITS/3 ML VIAL SQ SCH ×5 (00:06→20:38)
[2020-05-19] MEDS: 0.9 % Sodium Chloride 1,000 ML IVC SCH ×3 (00:07→20:37)
[2020-05-19 04:31] LABS: Hematocrit 27.8 % (35.3-44.9); Hemoglobin 9.1 g/dL (11.5-15.4); Mean Corpuscular HGB Conc 32.7 g/dL (31.6-35.5); Mean Corpuscular Hemoglobin 30.6 pg (28.0-33.3); Mean Corpuscular Volume 93.6 fL (83.0-100.0); Mean Platelet Volume 12.9 fL (9.4-12.4); Nucleated Red Blood Cells 0.3 /100 WBC (0); Platelet Count 208 K/mcL (140-400); Red Blood Count 2.97 M/mcL (3.82-4.97); Red Cell Distribution Width 15.6 % (11.5-14.5); White Blood Count 9.2 K/mcL (4.3-11.1)
[2020-05-19 04:50] LABS: BUN/Creatinine Ratio 24 (6-26); Blood Urea Nitrogen 10 mg/dL (8-23); Calcium 7.4 mg/dL (8.6-10.3); Carbon Dioxide 25 mEq/L (23-29); Chloride 103 mEq/L (98-107); Glucose 98 mg/dL (70-105); Magnesium 1.7 mg/dL (1.6-2.6); Osmolality,Calculated 283 (280-300); Phosphorous 4.6 mg/dL (2.7-4.5); Potassium 3.3 mEq/L (3.5-5.1); Sodium 137 mEq/L (136-145); eGFR For African Americans > 60 (> 60); eGFR For Non-African Americans > 60 (> 60)
[2020-05-19 04:52] LABS: Eosinophils # 0.6 K/mcL (0.0-0.6); Lymphocytes # 2.2 K/mcL (0.6-4.6); Monocytes # 0.6 K/mcL (0.0-1.3); Neutrophils # 5.9 K/mcL (1.6-8.9)
[2020-05-19] MEDS: Pantoprazole 40 MG VIAL IVP SCH (05:57)
[2020-05-19] MEDS: Acetaminophen IV 1,000 MG/100 ML INFUS..BTL IVPB SCH ×4 (06:16→13:12)
[2020-05-19] MEDS ORDERED: Isovue-370 500 ML BOTTLE IVP ONE (06:47)
[2020-05-19] MEDS ORDERED: Potassium Chloride 40 MEQ, Lidocaine 1% 2 ML in 0.9 % Sodium Chloride 500 ML IVPB ONE (07:40)
[2020-05-19] MEDS: Calcium Gluconate 1gm/50mL 1 GM/50 ML BAG IVPB SCH ×2 (09:34→10:20)
[2020-05-19] MEDS: Metoprolol XL (24 HR) Succ 25 MG TAB.ER.24H PO SCH ×2 (09:35→20:38)
[2020-05-19] MEDS ORDERED: *HR* Propofol 200 MG/20 ML VIAL IVP ONE (13:46)
[2020-05-19] MEDS ORDERED: *HR* FentaNYL (PF) 100 MCG/2 ML VIAL ONE ×2 (13:46→15:20)
[2020-05-19] MEDS ORDERED: *HR* Succinylcholine 200 MG/10 ML VIAL IVP ONE (13:51)
[2020-05-19] MEDS ORDERED: Lidocaine HCL 4 ML Topical Solution (Laryng-O-Jet Kit Sterile Pak) TP ONE (13:51)
[2020-05-19] MEDS ORDERED: Lidocaine -MPF 2% 2 ML VIAL ONE (13:51)
[2020-05-19] MEDS ORDERED: CefOXitin 1,000 MG VIAL ONE (14:03)
[2020-05-19] MEDS ORDERED: *HR* OxyCODONE Immed Rel 5 MG TABLET PO PRN (14:33)
[2020-05-19] MEDS ORDERED: *HR* HYDROmorphone PF 0.5 MG/0.5 ML SYRINGE IVP PRN (14:33)
[2020-05-19] MEDS ORDERED: *HR* HYDROMORPHONE 2 MG/ML VIAL ONE (15:19)
[2020-05-19] MEDS ORDERED: Ketorolac 30 MG/ML VIAL ONE (16:05)
[2020-05-19] MEDS ORDERED: *HR* Rocuronium Bromide 50 MG/5 ML VIAL ONE (16:52)
[2020-05-19] MEDS ORDERED: Clinimix E 5%-20% SOLUTION 2,000 ML with MVI, adult with vitamin K 10 ML, Trace Eleme... IVC SCH ×2 (17:00→19:20)
[2020-05-19] MEDS ORDERED: Neostigmine Methylsulfate 3 MG/3 ML SYRINGE ONE (17:33)
[2020-05-19] MEDS ORDERED: *HR* Dextrose 50 % in Water (Vial) 50 ML VIAL IVP PRN (19:20)
[2020-05-19] MEDS ORDERED: *HR* LORazepam 2 MG/ML VIAL IVP PRN (19:20)
[2020-05-19] MEDS ORDERED: Naloxone 0.4 MG/ML INJ IVP PRN (19:20)
[2020-05-19] MEDS ORDERED: Chloraseptic Spray 177 ML BOTTLE MM PRN (19:20)
[2020-05-19] MEDS ORDERED: Saliva Stimulant 100ml BOTTLE PO PRN (19:20)
[2020-05-19] MEDS ORDERED: D5% in Water 1,000 ML IVC PRN (19:20)
[2020-05-19] MEDS ORDERED: Fluticasone Propionate Nasal 50 MCG/SPRAY BOTTLE NS PRN (19:20)
[2020-05-19] MEDS ORDERED: Dextrose Gel 15 GM/37.5 ML TUBE PO PRN ×2 (19:20)
[2020-05-19] MEDS ORDERED: D10% in Water 500 ML IVC PRN (19:20)
[2020-05-19] MEDS: *HR* HYDROmorphone 20 MG/20 ML PCA IVC PRN (22:13)
[2020-05-20] MEDS: Acetaminophen IV 1,000 MG/100 ML INFUS..BTL IVPB SCH ×4 (00:04→17:29)
[2020-05-20] MEDS: MetroNIDAZOLE 500 MG/100 ML 500 MG/100 ML BAG IVPB SCH ×3 (00:04→17:30)
[2020-05-20] MEDS: Insulin LISPRO 300 UNITS/3 ML VIAL SQ SCH ×6 (00:08→21:30)
[2020-05-20 04:28] LABS: Hematocrit 29.9 % (35.3-44.9); Hemoglobin 9.5 g/dL (11.5-15.4); Mean Corpuscular HGB Conc 31.8 g/dL (31.6-35.5); Mean Corpuscular Hemoglobin 29.5 pg (28.0-33.3); Mean Corpuscular Volume 92.9 fL (83.0-100.0); Mean Platelet Volume 12.2 fL (9.4-12.4); Nucleated Red Blood Cells 0.2 /100 WBC (0); Platelet Count 305 K/mcL (140-400); Red Blood Count 3.22 M/mcL (3.82-4.97); Red Cell Distribution Width 15.4 % (11.5-14.5)
[2020-05-20 04:29] LABS: White Blood Count 16.4 K/mcL (4.3-11.1)
[2020-05-20 04:48] LABS: BUN/Creatinine Ratio 33 (6-26); Blood Urea Nitrogen 13 mg/dL (8-23); Calcium 7.6 mg/dL (8.6-10.3); Carbon Dioxide 27 mEq/L (23-29); Chloride 100 mEq/L (98-107); Glucose 156 mg/dL (70-105); Magnesium 1.8 mg/dL (1.6-2.6); Osmolality,Calculated 283 (280-300); Phosphorous 4.4 mg/dL (2.7-4.5); Potassium 3.5 mEq/L (3.5-5.1); Sodium 135 mEq/L (136-145); eGFR For African Americans > 60 (> 60); eGFR For Non-African Americans > 60 (> 60)
[2020-05-20 04:56] LABS: Lymphocytes # 0.3 K/mcL (0.6-4.6); Monocytes # 0.3 K/mcL (0.0-1.3); Neutrophils # 15.4 K/mcL (1.6-8.9)
[2020-05-20 04:57] LABS: Large Platelets Present (Not Present); Platelet Estimate Normal (Normal)
[2020-05-20] MEDS: Pantoprazole 40 MG VIAL IVP SCH ×2 (05:06→17:42)
[2020-05-20] MEDS: 0.9 % Sodium Chloride 1,000 ML IVC SCH ×2 (06:40→19:33)
[2020-05-20] MEDS: Metoprolol XL (24 HR) Succ 25 MG TAB.ER.24H PO SCH ×2 (09:40→21:43)
[2020-05-20] MEDS: Fluconazole 400 MG/200 ML 400 MG/200 ML BAG IVPB SCH (13:02)
[2020-05-20] MEDS: Calcium Gluconate 1gm/50mL 1 GM/50 ML BAG IVPB SCH ×2 (13:02→14:46)
[2020-05-20] MEDS ORDERED: Clinimix E 5%-20% SOLUTION 2,000 ML with MVI, adult with vitamin K 10 ML, Trace Eleme... IVC SCH (17:00)
[2020-05-21] MEDS: Acetaminophen IV 1,000 MG/100 ML INFUS..BTL IVPB SCH ×4 (00:41→19:18)
[2020-05-21] MEDS: MetroNIDAZOLE 500 MG/100 ML 500 MG/100 ML BAG IVPB SCH ×4 (00:41→23:23)
[2020-05-21] MEDS: Insulin LISPRO 300 UNITS/3 ML VIAL SQ SCH ×6 (00:45→23:21)
[2020-05-21] MEDS: Pantoprazole 40 MG VIAL IVP SCH ×2 (04:49→19:17)
[2020-05-21 05:24] LABS: Hematocrit 26.2 % (35.3-44.9); Hemoglobin 8.4 g/dL (11.5-15.4); Mean Corpuscular HGB Conc 32.1 g/dL (31.6-35.5); Mean Corpuscular Hemoglobin 30.5 pg (28.0-33.3); Mean Corpuscular Volume 95.3 fL (83.0-100.0); Mean Platelet Volume 11.7 fL (9.4-12.4); Nucleated Red Blood Cells 0.3 /100 WBC (0); Platelet Count 337 K/mcL (140-400); Red Blood Count 2.75 M/mcL (3.82-4.97); Red Cell Distribution Width 15.7 % (11.5-14.5); White Blood Count 11.1 K/mcL (4.3-11.1)
[2020-05-21 05:41] LABS: BUN/Creatinine Ratio 34 (6-26); Blood Urea Nitrogen 13 mg/dL (8-23); Calcium 7.1 mg/dL (8.6-10.3); Carbon Dioxide 27 mEq/L (23-29); Chloride 101 mEq/L (98-107); Glucose 117 mg/dL (70-105); Magnesium 1.7 mg/dL (1.6-2.6); Osmolality,Calculated 287 (280-300); Phosphorous 3.3 mg/dL (2.7-4.5); Potassium 3.1 mEq/L (3.5-5.1); Sodium 138 mEq/L (136-145); eGFR For African Americans > 60 (> 60); eGFR For Non-African Americans > 60 (> 60)
[2020-05-21] MEDS: 0.9 % Sodium Chloride 1,000 ML IVC SCH ×3 (07:10→19:15)
[2020-05-21 07:16] LABS: Hypochromasia Present (Not Present); Large Platelets Present (Not Present); Lymphocytes # 1.1 K/mcL (0.6-4.6); Neutrophils # 9.8 K/mcL (1.6-8.9); Platelet Estimate Normal (Normal)
[2020-05-21] MEDS ORDERED: Potassium Chloride 40 MEQ, Lidocaine 1% 2 ML in 0.9 % Sodium Chloride 500 ML IVPB ONE (07:41)
[2020-05-21] MEDS: Metoprolol XL (24 HR) Succ 25 MG TAB.ER.24H PO SCH ×2 (09:49→23:33)
[2020-05-21] MEDS: Fluconazole 400 MG/200 ML 400 MG/200 ML BAG IVPB SCH (09:49)
[2020-05-21] MEDS ORDERED: Clinimix E 5%-15% SOLUTION 2,000 ML with MVI, adult with vitamin K 10 ML, Trace Eleme... IVC SCH (17:00)
[2020-05-21 17:44] LABS: Hematocrit 26.2 % (35.3-44.9); Hemoglobin 8.3 g/dL (11.5-15.4)
[2020-05-21] MEDS: Calcium Gluconate 1gm/50mL 1 GM/50 ML BAG IVPB SCH ×2 (19:16→20:01)
[2020-05-22] MEDS: Insulin LISPRO 300 UNITS/3 ML VIAL SQ SCH ×6 (01:08→22:05)
[2020-05-22] MEDS: Acetaminophen IV 1,000 MG/100 ML INFUS..BTL IVPB SCH ×4 (01:21→17:45)
[2020-05-22] MEDS: Pantoprazole 40 MG VIAL IVP SCH ×2 (06:27→18:10)
[2020-05-22] MEDS: Metoprolol XL (24 HR) Succ 25 MG TAB.ER.24H PO SCH ×2 (09:02→22:03)
[2020-05-22] MEDS: Fluconazole 400 MG/200 ML 400 MG/200 ML BAG IVPB SCH (09:02)
[2020-05-22] MEDS: MetroNIDAZOLE 500 MG/100 ML 500 MG/100 ML BAG IVPB SCH ×2 (09:03→18:09)
[2020-05-22] MEDS: 0.9 % Sodium Chloride 1,000 ML IVC SCH ×3 (09:04→23:29)
[2020-05-22 10:49] LABS: BUN/Creatinine Ratio 33 (6-26); Blood Urea Nitrogen 12 mg/dL (8-23); Calcium 7.6 mg/dL (8.6-10.3); Carbon Dioxide 31 mEq/L (23-29); Chloride 102 mEq/L (98-107); Glucose 132 mg/dL (70-105); Magnesium 1.9 mg/dL (1.6-2.6); Osmolality,Calculated 290 (280-300); Phosphorous 4.2 mg/dL (2.7-4.5); Sodium 139 mEq/L (136-145); eGFR For African Americans > 60 (> 60); eGFR For Non-African Americans > 60 (> 60)
[2020-05-22 12:28] LABS: Basophils % 0.4 %; Eosinophils # 0.1 K/mcL (0.0-0.6); Eosinophils % 0.8 %; Hematocrit 26.5 % (35.3-44.9); Hemoglobin 8.4 g/dL (11.5-15.4); Immature Granulocytes % 4.5 % (0-4); Lymphocytes # 1.2 K/mcL (0.6-4.6); Lymphocytes % 10.7 %; Mean Corpuscular HGB Conc 31.7 g/dL (31.6-35.5); Mean Corpuscular Hemoglobin 29.8 pg (28.0-33.3); Mean Platelet Volume 11.6 fL (9.4-12.4); Monocytes # 0.9 K/mcL (0.0-1.3); Monocytes % 7.9 %; Neutrophils # 8.3 K/mcL (1.6-8.9); Platelet Count 432 K/mcL (140-400); Red Blood Count 2.82 M/mcL (3.82-4.97); Red Cell Distribution Width 15.1 % (11.5-14.5); Segmented Neutrophils % 75.7 %
[2020-05-22] MEDS ORDERED: Clinimix E 5%-15% SOLUTION 2,000 ML with MVI, adult with vitamin K 10 ML, Trace Eleme... IVC SCH (17:00)
[2020-05-23] MEDS: Acetaminophen IV 1,000 MG/100 ML INFUS..BTL IVPB SCH ×5 (00:10→23:52)
[2020-05-23] MEDS: MetroNIDAZOLE 500 MG/100 ML 500 MG/100 ML BAG IVPB SCH ×4 (00:11→23:53)
[2020-05-23] MEDS: Insulin LISPRO 300 UNITS/3 ML VIAL SQ SCH ×7 (00:11→23:51)
[2020-05-23] MEDS: Pantoprazole 40 MG VIAL IVP SCH ×2 (06:06→18:01)
[2020-05-23] MEDS: *HR* HYDROmorphone 20 MG/20 ML PCA IVC PRN (07:46)
[2020-05-23] MEDS: Metoprolol XL (24 HR) Succ 25 MG TAB.ER.24H PO SCH (08:26)
[2020-05-23] MEDS: Fluconazole 400 MG/200 ML 400 MG/200 ML BAG IVPB SCH (08:26)
[2020-05-23 09:03] LABS: BUN/Creatinine Ratio 34 (6-26); Blood Urea Nitrogen 13 mg/dL (8-23); Calcium 7.7 mg/dL (8.6-10.3); Carbon Dioxide 29 mEq/L (23-29); Chloride 102 mEq/L (98-107); Glucose 107 mg/dL (70-105); Magnesium 1.9 mg/dL (1.6-2.6); Osmolality,Calculated 287 (280-300); Phosphorous 4.4 mg/dL (2.7-4.5); Potassium 3.4 mEq/L (3.5-5.1); Sodium 138 mEq/L (136-145); eGFR For African Americans > 60 (> 60); eGFR For Non-African Americans > 60 (> 60)
[2020-05-23] MEDS: 0.9 % Sodium Chloride 1,000 ML IVC SCH (12:27)
[2020-05-23] MEDS ORDERED: Clinimix E 5%-15% SOLUTION 2,000 ML with MVI, adult with vitamin K 10 ML, Trace Eleme... IVC SCH (17:00)
[2020-05-23] MEDS: *HR* Metoprolol 5 MG/5 ML VIAL IVP SCH (23:53)
[2020-05-24] MEDS ORDERED: 0.9 % Sodium Chloride 1,000 ML IVC SCH (02:00)
[2020-05-24] MEDS: Insulin LISPRO 300 UNITS/3 ML VIAL SQ SCH ×5 (04:03→21:20)
[2020-05-24 04:49] LABS: BUN/Creatinine Ratio 36 (6-26); Blood Urea Nitrogen 14 mg/dL (8-23); Calcium 7.6 mg/dL (8.6-10.3); Carbon Dioxide 27 mEq/L (23-29); Chloride 104 mEq/L (98-107); Glucose 102 mg/dL (70-105); Magnesium 2.2 mg/dL (1.6-2.6); Osmolality,Calculated 289 (280-300); Phosphorous 4.1 mg/dL (2.7-4.5); Potassium 3.4 mEq/L (3.5-5.1); Sodium 139 mEq/L (136-145); eGFR For African Americans > 60 (> 60); eGFR For Non-African Americans > 60 (> 60)
[2020-05-24] MEDS: Pantoprazole 40 MG VIAL IVP SCH ×2 (06:56→16:27)
[2020-05-24] MEDS: Acetaminophen IV 1,000 MG/100 ML INFUS..BTL IVPB SCH ×3 (06:56→18:38)
[2020-05-24] MEDS: *HR* Metoprolol 5 MG/5 ML VIAL IVP SCH ×2 (06:56→12:26)
[2020-05-24] MEDS: MetroNIDAZOLE 500 MG/100 ML 500 MG/100 ML BAG IVPB SCH ×2 (09:41→16:27)
[2020-05-24] MEDS: Fluconazole 400 MG/200 ML 400 MG/200 ML BAG IVPB SCH (09:41)
[2020-05-24 11:00] LABS: Basophils % 0.3 %; Eosinophils # 0.1 K/mcL (0.0-0.6); Eosinophils % 0.9 %; Hematocrit 27.1 % (35.3-44.9); Hemoglobin 8.6 g/dL (11.5-15.4); Immature Granulocytes % 2.4 % (0-4); Lymphocytes # 1.6 K/mcL (0.6-4.6); Lymphocytes % 10.2 %; Mean Corpuscular HGB Conc 31.7 g/dL (31.6-35.5); Mean Corpuscular Hemoglobin 30.2 pg (28.0-33.3); Mean Corpuscular Volume 95.1 fL (83.0-100.0); Mean Platelet Volume 11.5 fL (9.4-12.4); Monocytes # 1.6 K/mcL (0.0-1.3); Monocytes % 10.8 %; Neutrophils # 11.4 K/mcL (1.6-8.9); Nucleated Red Blood Cells 0.2 /100 WBC (0); Platelet Count 564 K/mcL (140-400); Red Blood Count 2.85 M/mcL (3.82-4.97); Red Cell Distribution Width 14.8 % (11.5-14.5); Segmented Neutrophils % 75.4 %; White Blood Count 15.2 K/mcL (4.3-11.1)
[2020-05-24] MEDS ORDERED: Isovue-370 500 ML BOTTLE IVP ONE (12:46)
[2020-05-24] MEDS: 0.9 % Sodium Chloride 1,000 ML IVC SCH (15:53)
[2020-05-24] MEDS ORDERED: Clinimix E 5%-15% SOLUTION 2,000 ML with MVI, adult with vitamin K 10 ML, Trace Eleme... IVC SCH (17:00)
[2020-05-24] MEDS: Ondansetron 4 MG/2 ML VIAL IVP PRN (21:51)
[2020-05-25] MEDS: Insulin LISPRO 300 UNITS/3 ML VIAL SQ SCH ×7 (00:18→23:42)
[2020-05-25] MEDS: Acetaminophen IV 1,000 MG/100 ML INFUS..BTL IVPB SCH ×2 (00:21→06:00)
[2020-05-25] MEDS: MetroNIDAZOLE 500 MG/100 ML 500 MG/100 ML BAG IVPB SCH ×2 (00:24→07:51)
[2020-05-25] MEDS: Pantoprazole 40 MG VIAL IVP SCH ×2 (06:00→16:14)
[2020-05-25] MEDS ORDERED: Acetaminophen/Aspirin/Caffeine TABLET PO PRN (06:09)
[2020-05-25] MEDS ORDERED: Topiramate 25 MG TABLET PO ONE (06:16)
[2020-05-25] MEDS: Fluconazole 400 MG/200 ML 400 MG/200 ML BAG IVPB SCH (07:52)
[2020-05-25] MEDS: 0.9 % Sodium Chloride 1,000 ML IVC SCH (07:54)
[2020-05-25] MEDS ORDERED: Acetaminophen 325 MG TABLET PO PRN (09:29)
[2020-05-25 12:08] LABS: Hematocrit 28.9 % (35.3-44.9); Hemoglobin 8.8 g/dL (11.5-15.4); Mean Corpuscular HGB Conc 30.4 g/dL (31.6-35.5); Mean Corpuscular Hemoglobin 29.1 pg (28.0-33.3); Mean Corpuscular Volume 95.7 fL (83.0-100.0); Mean Platelet Volume 11.3 fL (9.4-12.4); Platelet Count 687 K/mcL (140-400); Red Blood Count 3.02 M/mcL (3.82-4.97); Red Cell Distribution Width 15.1 % (11.5-14.5); White Blood Count 14.8 K/mcL (4.3-11.1)
[2020-05-25 12:25] LABS: BUN/Creatinine Ratio 39 (6-26); Blood Urea Nitrogen 16 mg/dL (8-23); Calcium 8.2 mg/dL (8.6-10.3); Carbon Dioxide 28 mEq/L (23-29); Chloride 103 mEq/L (98-107); Glucose 136 mg/dL (70-105); Magnesium 2.1 mg/dL (1.6-2.6); Osmolality,Calculated 285 (280-300); Phosphorous 3.9 mg/dL (2.7-4.5); Sodium 136 mEq/L (136-145); eGFR For African Americans > 60 (> 60); eGFR For Non-African Americans > 60 (> 60)
[2020-05-25] MEDS: metroNIDAZOLE 500 MG TABLET PO SCH ×2 (15:57→19:59)
[2020-05-25] MEDS: *HR* OxyCODONE/APAP 5/325 TABLET PO PRN (16:05)
[2020-05-25] MEDS: Ondansetron 4 MG/2 ML VIAL IVP PRN (16:05)
[2020-05-25] MEDS ORDERED: Clinimix E 5%-15% SOLUTION 2,000 ML with MVI, adult with vitamin K 10 ML, Trace Eleme... IVC SCH (17:00)
[2020-05-25] MEDS: Topiramate 25 MG TABLET PO SCH (19:59)
[2020-05-26] MEDS: Pantoprazole 40 MG VIAL IVP SCH ×2 (05:07→16:04)
[2020-05-26] MEDS: Insulin LISPRO 300 UNITS/3 ML VIAL SQ SCH ×4 (05:13→16:58)
[2020-05-26 05:27] LABS: Basophils % 0.2 %; Eosinophils # 0.2 K/mcL (0.0-0.6); Eosinophils % 1.5 %; Hematocrit 18.3 % (35.3-44.9); Immature Granulocytes % 4.1 % (0-4); Lymphocytes # 1.3 K/mcL (0.6-4.6); Lymphocytes % 12.6 %; Mean Corpuscular HGB Conc 30.6 g/dL (31.6-35.5); Mean Corpuscular Hemoglobin 30.8 pg (28.0-33.3); Mean Corpuscular Volume 100.5 fL (83.0-100.0); Mean Platelet Volume 11.3 fL (9.4-12.4); Monocytes # 1.1 K/mcL (0.0-1.3); Platelet Count 407 K/mcL (140-400); Red Blood Count 1.82 M/mcL (3.82-4.97); Red Cell Distribution Width 15.4 % (11.5-14.5); Segmented Neutrophils % 70.6 %; White Blood Count 10.1 K/mcL (4.3-11.1)
[2020-05-26 05:31] LABS: Neutrophils # 7.1 K/mcL (1.6-8.9)
[2020-05-26 05:37] LABS: Hemoglobin 5.6 g/dL (11.5-15.4)
[2020-05-26 05:40] LABS: BUN/Creatinine Ratio 36 (6-26); Blood Urea Nitrogen 17 mg/dL (8-23); Carbon Dioxide 25 mEq/L (23-29); Chloride 100 mEq/L (98-107); Glucose 100 mg/dL (70-105); Magnesium 2.1 mg/dL (1.6-2.6); Osmolality,Calculated 280 (280-300); Phosphorous 4.2 mg/dL (2.7-4.5); Potassium 3.8 mEq/L (3.5-5.1); Sodium 134 mEq/L (136-145); eGFR For African Americans > 60 (> 60); eGFR For Non-African Americans > 60 (> 60)
[2020-05-26 06:10] LABS: Hemoglobin 8.7 g/dL (11.5-15.4)
[2020-05-26] MEDS ORDERED: 0.9 % Sodium Chloride 1,000 ML IVC SCH (09:04)
[2020-05-26] MEDS: metroNIDAZOLE 500 MG TABLET PO SCH ×3 (10:14→20:08)
[2020-05-26] MEDS: Fluconazole 100 MG TABLET PO SCH (10:14)
[2020-05-26] MEDS: Ondansetron 4 MG/2 ML VIAL IVP PRN ×2 (10:15→23:29)
[2020-05-26] MEDS: Topiramate 25 MG TABLET PO SCH ×2 (10:15→20:08)
[2020-05-26] MEDS ORDERED: Clinimix E 5%-15% SOLUTION 2,000 ML with MVI, adult with vitamin K 10 ML, Trace Eleme... IVC SCH (17:00)
[2020-05-26] MEDS: *HR* OxyCODONE/APAP 5/325 TABLET PO PRN (20:08)
[2020-05-27] MEDS: *HR* OxyCODONE/APAP 5/325 TABLET PO PRN (02:20)
[2020-05-27] MEDS: Insulin LISPRO 300 UNITS/3 ML VIAL SQ SCH ×3 (04:01→04:04)
[2020-05-27] MEDS: Pantoprazole 40 MG VIAL IVP SCH (05:13)
[2020-05-27 07:22] LABS: BUN/Creatinine Ratio 27 (6-26); Blood Urea Nitrogen 14 mg/dL (8-23); Calcium 8.3 mg/dL (8.6-10.3); Carbon Dioxide 25 mEq/L (23-29); Chloride 103 mEq/L (98-107); Glucose 102 mg/dL (70-105); Magnesium 2.1 mg/dL (1.6-2.6); Osmolality,Calculated 283 (280-300); Phosphorous 3.8 mg/dL (2.7-4.5); Potassium 3.6 mEq/L (3.5-5.1); Sodium 136 mEq/L (136-145); eGFR For African Americans > 60 (> 60); eGFR For Non-African Americans > 60 (> 60)
[2020-05-27 07:37] VITALS: BP 107/59
[2020-05-27] MEDS: Fluconazole 100 MG TABLET PO SCH (09:41)
[2020-05-27] MEDS: Topiramate 25 MG TABLET PO SCH (09:41)
[2020-05-27] MEDS: metroNIDAZOLE 500 MG TABLET PO SCH (10:03)
== END 2020-05-27 13:48 | disposition home health service (06) | DRG 326 ==
LOC: 3BNU 18:29 → EMEROOARM 18:29 → SUATTDRO 22:19 → 3BNU 22:40 → SUATTDRO 05-07 11:31 → 3ANU 05-10 14:52
PROVIDERS: ADMIT Student in an Organized Health Care Education/Training Program; ATTEND Internal Medicine
PROC: ENDOEBX (2020-05-08 17:30)

== ENCOUNTER 2020-10-28 11:59 | Inpatient (IN) ==
[2020-10-28] MEDS ORDERED: 0.9 % Sodium Chloride 1,000 ML IVC ONE ×2 (12:10→14:31)
[2020-10-28] MEDS ORDERED: Ondansetron 4 MG/2 ML VIAL IVP ONE ×2 (12:10→15:59)
[2020-10-28] MEDS ORDERED: Morphine Sulfate 2 MG/ML SYRINGE IVP ONE (12:23)
[2020-10-28 12:50] LABS: Basophils % 0.3 %; Hematocrit 42.7 % (35.3-44.9); Hemoglobin 13.1 g/dL (11.5-15.4); Immature Granulocytes % 0.4 % (0-4); Lymphocytes # 1.6 K/mcL (0.6-4.6); Lymphocytes % 13.6 %; Mean Corpuscular HGB Conc 30.7 g/dL (31.6-35.5); Mean Corpuscular Hemoglobin 27.1 pg (28.0-33.3); Mean Corpuscular Volume 88.4 fL (83.0-100.0); Mean Platelet Volume 11.4 fL (9.4-12.4); Monocytes # 0.6 K/mcL (0.0-1.3); Monocytes % 5.2 %; Neutrophils # 9.4 K/mcL (1.6-8.9); Platelet Count 380 K/mcL (140-400); Red Blood Count 4.83 M/mcL (3.82-4.97); Red Cell Distribution Width 13.7 % (11.5-14.5); Segmented Neutrophils % 80.5 %; White Blood Count 11.6 K/mcL (4.3-11.1)
[2020-10-28 13:06] LABS: Alanine Aminotransferase 7 Units/L (7-52); Albumin 4.3 g/dL (3.5-5.7); Albumin/Globulin Ratio 1.5 (1.1-2.2); Alkaline Phosphatase 64 Units/L (34-104); Aspartate Amino Transferase 9 Units/L (13-39); BUN/Creatinine Ratio 28 (6-26); Bilirubin,Total 0.5 mg/dL (0.3-1.0); Blood Urea Nitrogen 17 mg/dL (8-23); Calcium 9.4 mg/dL (8.6-10.3); Carbon Dioxide 31 mEq/L (23-29); Chloride 99 mEq/L (98-107); Globulin 2.8 g/dL (2.4-3.5); Glucose 139 mg/dL (70-105); Osmolality,Calculated 296 (280-300); Potassium 3.9 mEq/L (3.5-5.1); Sodium 141 mEq/L (136-145); Total Protein 7.1 g/dL (6.4-8.9); eGFR For African Americans > 60 (> 60); eGFR For Non-African Americans > 60 (> 60)
[2020-10-28 13:17] LABS: Lipase 27 Units/L (11-82)
[2020-10-28 13:18] LABS: Troponin I < 0.03 ng/mL (< 0.04)
[2020-10-28] MEDS ORDERED: Ketorolac 15 MG/ML VIAL IVP PRN (14:24)
[2020-10-28] MEDS ORDERED: Ondansetron 4 MG/2 ML VIAL IVP PRN (14:24)
[2020-10-28] MEDS ORDERED: Naloxone 0.4 MG/ML INJ IVP PRN (14:24)
[2020-10-28 14:46] LABS: INR 1.1; Prothrombin Time 12.6 Seconds (9.4-12.1)
[2020-10-28] MEDS ORDERED: Famotidine 20 MG/2 ML VIAL IVP ONE (15:54)
[2020-10-28] MEDS: 0.9 % Sodium Chloride 1,000 ML IVC SCH (15:56)
[2020-10-28 17:02] LABS: Influenza A PCR Negative (Negative); Influenza B PCR Negative (Negative); Resp. Syncytial Virus PCR Negative (Negative)
[2020-10-28 17:08] LABS: SARS-CoV-2 by PCR (In House) Negative (Negative)
[2020-10-28] MEDS: Pantoprazole 40 MG VIAL IVP SCH (19:04)
[2020-10-28] MEDS: Acetaminophen IV 1,000 MG/100 ML BAG IVPB SCH ×2 (19:04→23:25)
[2020-10-28] MEDS: *HR* Heparin 5,000 UNIT/ML VIAL SQ SCH (19:05)
[2020-10-29] MEDS: 0.9 % Sodium Chloride 1,000 ML IVC SCH ×2 (02:34→12:45)
[2020-10-29 04:22] LABS: Basophils % 0.5 %; Eosinophils # 0.1 K/mcL (0.0-0.6); Eosinophils % 1.1 %; Hematocrit 34.2 % (35.3-44.9); Immature Granulocytes % 0.4 % (0-4); Lymphocytes # 3.2 K/mcL (0.6-4.6); Lymphocytes % 39.3 %; Mean Corpuscular HGB Conc 29.2 g/dL (31.6-35.5); Mean Corpuscular Hemoglobin 27.4 pg (28.0-33.3); Mean Corpuscular Volume 93.7 fL (83.0-100.0); Mean Platelet Volume 11.5 fL (9.4-12.4); Monocytes # 0.9 K/mcL (0.0-1.3); Monocytes % 11.3 %; Neutrophils # 3.9 K/mcL (1.6-8.9); Platelet Count 254 K/mcL (140-400); Red Blood Count 3.65 M/mcL (3.82-4.97); Red Cell Distribution Width 13.8 % (11.5-14.5); Segmented Neutrophils % 47.4 %; White Blood Count 8.2 K/mcL (4.3-11.1)
[2020-10-29 04:41] LABS: Alanine Aminotransferase 5 Units/L (7-52); Albumin 3.1 g/dL (3.5-5.7); Albumin/Globulin Ratio 1.6 (1.1-2.2); Alkaline Phosphatase 44 Units/L (34-104); Aspartate Amino Transferase 7 Units/L (13-39); BUN/Creatinine Ratio 21 (6-26); Bilirubin,Total 0.4 mg/dL (0.3-1.0); Blood Urea Nitrogen 11 mg/dL (8-23); Calcium 7.8 mg/dL (8.6-10.3); Carbon Dioxide 27 mEq/L (23-29); Chloride 108 mEq/L (98-107); Globulin 1.9 g/dL (2.4-3.5); Glucose 94 mg/dL (70-105); Osmolality,Calculated 287 (280-300); Potassium 3.6 mEq/L (3.5-5.1); Sodium 139 mEq/L (136-145); eGFR For African Americans > 60 (> 60); eGFR For Non-African Americans > 60 (> 60)
[2020-10-29] MEDS: Acetaminophen IV 1,000 MG/100 ML BAG IVPB SCH ×4 (05:24→23:52)
[2020-10-29] MEDS: Pantoprazole 40 MG VIAL IVP SCH ×2 (05:24→17:16)
[2020-10-29] MEDS: *HR* Heparin 5,000 UNIT/ML VIAL SQ SCH ×2 (05:25→17:17)
[2020-10-29] MEDS ORDERED: Ketorolac 15 MG/ML VIAL IVP ONE (07:52)
[2020-10-29] MEDS ORDERED: 0.9 % Sodium Chloride 1,000 ML IVC ONE (07:52)
[2020-10-29] MEDS ORDERED: Prochlorperazine 10 MG/2 ML VIAL IVP ONE (07:53)
[2020-10-29] MEDS: Gabapentin 300 MG CAPSULE PO SCH ×2 (08:14→21:10)
[2020-10-29] MEDS: Topiramate 25 MG TABLET PO SCH ×2 (08:14→21:10)
[2020-10-29] MEDS ORDERED: NON-FORMULARY MEDICATION 1 EACH EACH (Duloxetine Hcl 60 MG) PO SCH (09:00)
[2020-10-29] MEDS ORDERED: Lidocaine -MPF 2% 2 ML VIAL ONE ×2 (12:43→15:35)
[2020-10-29] MEDS ORDERED: *HR* Propofol 200 MG/20 ML VIAL IVP ONE ×2 (12:44→15:39)
[2020-10-29] MEDS ORDERED: *HR* PHENYLEPHRINE 1,000 MCG/10 ML SYRINGE IVP ONE ×2 (12:44→15:54)
[2020-10-29] MEDS: Fluconazole 200 MG/100 ML 100 MG/50 ML BAG IVPB SCH (17:47)
[2020-10-29] MEDS ORDERED: Temazepam 15 MG CAPSULE PO SCH (21:00)
[2020-10-29] MEDS ORDERED: traZODone 50 MG TABLET PO SCH (21:00)
[2020-10-29] MEDS: MetroNIDAZOLE 500 MG/100 ML 500 MG/100 ML BAG IVPB SCH (23:51)
[2020-10-30 04:39] LABS: Basophils % 0.5 %; Eosinophils # 0.2 K/mcL (0.0-0.6); Hemoglobin 9.4 g/dL (11.5-15.4); Immature Granulocytes % 0.2 % (0-4); Lymphocytes # 2.1 K/mcL (0.6-4.6); Lymphocytes % 36.9 %; Mean Corpuscular HGB Conc 30.3 g/dL (31.6-35.5); Mean Corpuscular Hemoglobin 27.6 pg (28.0-33.3); Mean Corpuscular Volume 90.9 fL (83.0-100.0); Mean Platelet Volume 11.5 fL (9.4-12.4); Monocytes # 0.5 K/mcL (0.0-1.3); Monocytes % 8.6 %; Neutrophils # 2.9 K/mcL (1.6-8.9); Platelet Count 212 K/mcL (140-400); Red Blood Count 3.41 M/mcL (3.82-4.97); Red Cell Distribution Width 13.5 % (11.5-14.5); Segmented Neutrophils % 49.8 %; White Blood Count 5.8 K/mcL (4.3-11.1)
[2020-10-30 04:55] LABS: BUN/Creatinine Ratio 14 (6-26); Blood Urea Nitrogen 6 mg/dL (8-23); Calcium 8.1 mg/dL (8.6-10.3); Carbon Dioxide 28 mEq/L (23-29); Chloride 108 mEq/L (98-107); Glucose 86 mg/dL (70-105); Magnesium 1.7 mg/dL (1.6-2.6); Osmolality,Calculated 289 (280-300); Phosphorous 3.1 mg/dL (2.7-4.5); Potassium 2.9 mEq/L (3.5-5.1); Sodium 141 mEq/L (136-145); eGFR For African Americans > 60 (> 60); eGFR For Non-African Americans > 60 (> 60)
[2020-10-30] MEDS: Pantoprazole 40 MG VIAL IVP SCH (05:08)
[2020-10-30] MEDS: *HR* Heparin 5,000 UNIT/ML VIAL SQ SCH (05:08)
[2020-10-30] MEDS: 0.9 % Sodium Chloride 1,000 ML IVC SCH (05:08)
[2020-10-30] MEDS: Acetaminophen IV 1,000 MG/100 ML BAG IVPB SCH ×2 (05:17→11:53)
[2020-10-30] MEDS: Gabapentin 300 MG CAPSULE PO SCH (08:54)
[2020-10-30] MEDS: Fluconazole 200 MG/100 ML 100 MG/50 ML BAG IVPB SCH (08:55)
[2020-10-30] MEDS: Topiramate 25 MG TABLET PO SCH (08:55)
[2020-10-30] MEDS: MetroNIDAZOLE 500 MG/100 ML 500 MG/100 ML BAG IVPB SCH ×2 (09:12→15:58)
[2020-10-30 10:35] VITALS: BP 117/65
[2020-10-30] MEDS ORDERED: Piperacillin/Tazobactam 3.375 GM in 0.9 % Sodium Chloride Mini Bag 100 ML IVPB SCH (12:00)
[2020-10-30] MEDS ORDERED: Potassium Chloride 40 MEQ, Lidocaine 1% 2 ML in 0.9 % Sodium Chloride 500 ML IVPB ONE (12:57)
== END 2020-10-30 18:33 | disposition home or self-care (01) | DRG 391 ==
LOC: 3ANU 11:59 → EMEROOARM 11:59 → 3ANU 15:22 → SUATTDRO 10-29 20:35
PROVIDERS: ADMIT Internal Medicine; ATTEND Internal Medicine
PROC: ENDOEBX (2020-10-29 14:00)

== ENCOUNTER 2020-11-23 14:49 | Inpatient (IN) ==
[2020-11-23] MEDS ORDERED: 0.9 % Sodium Chloride 1,000 ML IVC ONE (14:59)
[2020-11-23 15:23] LABS: Basophils % 0.2 %; Hematocrit 39.5 % (35.3-44.9); Hemoglobin 12.2 g/dL (11.5-15.4); Immature Granulocytes % 0.3 % (0-4); Lymphocytes # 1.8 K/mcL (0.6-4.6); Lymphocytes % 15.8 %; Mean Corpuscular HGB Conc 30.9 g/dL (31.6-35.5); Mean Corpuscular Volume 90.6 fL (83.0-100.0); Mean Platelet Volume 11.9 fL (9.4-12.4); Monocytes # 0.6 K/mcL (0.0-1.3); Monocytes % 5.4 %; Neutrophils # 9.1 K/mcL (1.6-8.9); Platelet Count 272 K/mcL (140-400); Red Blood Count 4.36 M/mcL (3.82-4.97); Red Cell Distribution Width 13.7 % (11.5-14.5); Segmented Neutrophils % 78.3 %; White Blood Count 11.7 K/mcL (4.3-11.1)
[2020-11-23 15:32] LABS: INR 1.1; Prothrombin Time 12.8 Seconds (9.4-12.1)
[2020-11-23 15:34] LABS: Bacteria,Urine Few per hpf (None-Few); Bilirubin,Urine Negative (Negative); Blood,Urine Large (Negative); Clarity,Urine Clear (Clear); Color,Urine Yellow (Yellow); Glucose,Urine (UA) Normal (Normal); Hyaline Casts,Urine Few per lpf (None Seen); Ketones,Urine 40 mg/dL (Negative); Leukocyte Esterase,Urine Large (Negative); Mucus,Urine Moderate per lpf (None-Few); Nitrite,Urine Negative (Negative); Protein,Urine 70 mg/dL (Neg-Trace); Specific Gravity,Urine 1.027 (1.010-1.025); Squamous Epithelial Cell,Urine Few per hpf (None-Few); Urobilinogen,Urine Normal (Normal); WBC,Urine 15-30 per hpf (0-3)
[2020-11-23] MEDS ORDERED: *HR* FentaNYL (PF) 100 MCG/2 ML VIAL IVP STA (15:38)
[2020-11-23] MEDS ORDERED: Ondansetron 4 MG/2 ML VIAL IVP STA (15:39)
[2020-11-23 16:08] LABS: Alanine Aminotransferase 9 Units/L (7-52); Albumin 4.2 g/dL (3.5-5.7); Albumin/Globulin Ratio 1.6 (1.1-2.2); Alkaline Phosphatase 55 Units/L (34-104); Aspartate Amino Transferase 11 Units/L (13-39); BUN/Creatinine Ratio 41 (6-26); Bilirubin,Direct 0.1 mg/dL (0.0-0.2); Bilirubin,Indirect 0.4 mg/dL (0.0-1.0); Bilirubin,Total 0.5 mg/dL (0.3-1.0); Blood Urea Nitrogen 25 mg/dL (8-23); Calcium 9.3 mg/dL (8.6-10.3); Carbon Dioxide 27 mEq/L (23-29); Chloride 101 mEq/L (98-107); Globulin 2.7 g/dL (2.4-3.5); Glucose 169 mg/dL (70-105); Lipase 27 Units/L (11-82); Osmolality,Calculated 296 (280-300); Potassium 3.2 mEq/L (3.5-5.1); Sodium 139 mEq/L (136-145); Total Protein 6.9 g/dL (6.4-8.9); Troponin I < 0.03 ng/mL (< 0.04); eGFR For African Americans > 60 (> 60); eGFR For Non-African Americans > 60 (> 60)
[2020-11-23] MEDS ORDERED: Isovue-370 500 ML BOTTLE IVP ONE (16:12)
[2020-11-23] MEDS ORDERED: 0.9 % Sodium Chloride 500 ML IV ONE (18:02)
[2020-11-23] MEDS: Morphine Sulfate 2 MG/ML SYRINGE IVP ONE ×2 (18:17→19:11)
[2020-11-23] MEDS ORDERED: Ondansetron 4 MG/2 ML VIAL IVP ONE (18:49)
[2020-11-23] MEDS ORDERED: 0.9 % Sodium Chloride 500 ML ONE (18:52)
[2020-11-23] MEDS ORDERED: Ondansetron 4 MG/2 ML VIAL ONE (18:52)
[2020-11-23] MEDS ORDERED: *HR* Promethazine 25 MG/ML VIAL IM PRN (20:38)
[2020-11-23] MEDS ORDERED: Naloxone 0.4 MG/ML INJ IVP PRN (20:38)
[2020-11-23] MEDS ORDERED: Ondansetron 4 MG/2 ML VIAL IVP PRN (20:38)
[2020-11-23] MEDS ORDERED: Ringers Solution, Lactated 1,000 ML IVC SCH (20:45)
[2020-11-23] MEDS ORDERED: Potassium Chloride 40 MEQ, Lidocaine 1% 2 ML in 0.9 % Sodium Chloride 500 ML IVPB ONE (21:00)
[2020-11-23] MEDS: 0.9 % Sodium Chloride 1,000 ML IVC SCH (22:16)
[2020-11-23] MEDS: Pantoprazole 40 MG in 0.9 % Sodium Chloride Mini Bag 100 ML IVC SCH (22:16)
[2020-11-23] MEDS: Topiramate 25 MG TABLET PO SCH (22:40)
[2020-11-24] MEDS ORDERED: Acetaminophen IV 1,000 MG/100 ML BAG IVPB ONE (02:22)
[2020-11-24] MEDS: Pantoprazole 40 MG in 0.9 % Sodium Chloride Mini Bag 100 ML IVC SCH ×4 (04:13→22:38)
[2020-11-24] MEDS ORDERED: *HR* HYDROmorphone (PF) 1 MG/ML SYRINGE IVP ONE (04:36)
[2020-11-24] MEDS ORDERED: Chloraseptic Spray 177 ML BOTTLE MM PRN (05:27)
[2020-11-24] MEDS ORDERED: *HR* Heparin 5,000 UNIT/ML VIAL SQ SCH (06:00)
[2020-11-24 06:12] LABS: Basophils % 0.4 %; Eosinophils # 0.1 K/mcL (0.0-0.6); Eosinophils % 0.8 %; Hematocrit 30.2 % (35.3-44.9); Immature Granulocytes % 0.4 % (0-4); Lymphocytes # 2.8 K/mcL (0.6-4.6); Lymphocytes % 39.2 %; Mean Corpuscular HGB Conc 30.1 g/dL (31.6-35.5); Mean Corpuscular Volume 92.9 fL (83.0-100.0); Mean Platelet Volume 12.2 fL (9.4-12.4); Monocytes # 0.8 K/mcL (0.0-1.3); Monocytes % 10.6 %; Neutrophils # 3.5 K/mcL (1.6-8.9); Platelet Count 180 K/mcL (140-400); Red Blood Count 3.25 M/mcL (3.82-4.97); Red Cell Distribution Width 13.9 % (11.5-14.5); Segmented Neutrophils % 48.6 %; White Blood Count 7.1 K/mcL (4.3-11.1)
[2020-11-24 06:14] LABS: Hemoglobin 9.1 g/dL (11.5-15.4)
[2020-11-24 06:16] LABS: INR 1.2; Prothrombin Time 13.7 Seconds (9.4-12.1)
[2020-11-24 06:33] LABS: Alanine Aminotransferase 6 Units/L (7-52); Albumin 3.1 g/dL (3.5-5.7); Albumin/Globulin Ratio 1.6 (1.1-2.2); Alkaline Phosphatase 38 Units/L (34-104); Aspartate Amino Transferase 8 Units/L (13-39); BUN/Creatinine Ratio 30 (6-26); Bilirubin,Total 0.4 mg/dL (0.3-1.0); Blood Urea Nitrogen 14 mg/dL (8-23); Carbon Dioxide 26 mEq/L (23-29); Chloride 113 mEq/L (98-107); Globulin 1.9 g/dL (2.4-3.5); Glucose 100 mg/dL (70-105); Magnesium 1.8 mg/dL (1.6-2.6); Osmolality,Calculated 295 (280-300); Phosphorous 2.4 mg/dL (2.7-4.5); Potassium 3.8 mEq/L (3.5-5.1); Sodium 142 mEq/L (136-145); Troponin I < 0.03 ng/mL (< 0.04); eGFR For African Americans > 60 (> 60); eGFR For Non-African Americans > 60 (> 60)
[2020-11-24] MEDS ORDERED: Dextrose Gel 15 GM/37.5 ML TUBE PO PRN ×2 (08:16)
[2020-11-24] MEDS ORDERED: D5% in Water 1,000 ML IVC PRN (08:16)
[2020-11-24] MEDS: 0.9 % Sodium Chloride 1,000 ML IVC SCH ×2 (08:57→20:42)
[2020-11-24] MEDS: cefTRIAXone 1,000 MG in Water for inj. (sterile) 10 ML IVP SCH (08:57)
[2020-11-24] MEDS: Topiramate 25 MG TABLET PO SCH ×2 (09:32→20:03)
[2020-11-24] MEDS: Gabapentin 300 MG CAPSULE PO SCH ×2 (09:32→20:03)
[2020-11-24] MEDS: *HR* Dextrose 50 % in Water (Vial) 50 ML VIAL IVP PRN (11:26)
[2020-11-24] MEDS: Insulin LISPRO 300 UNITS/3 ML VIAL SUBQ SCH ×2 (11:36→17:50)
[2020-11-24] MEDS: Temazepam 15 MG CAPSULE PO SCH (20:03)
[2020-11-24] MEDS: traZODone 50 MG TABLET PO SCH (20:03)
[2020-11-24] MEDS ORDERED: SUMAtriptan 6 MG/0.5 ML SQ ONE (21:20)
[2020-11-25] MEDS: Insulin LISPRO 300 UNITS/3 ML VIAL SUBQ SCH ×4 (00:36→17:44)
[2020-11-25] MEDS: Pantoprazole 40 MG in 0.9 % Sodium Chloride Mini Bag 100 ML IVC SCH ×3 (03:43→14:06)
[2020-11-25 04:56] LABS: Basophils % 0.5 %; Eosinophils # 0.1 K/mcL (0.0-0.6); Eosinophils % 0.9 %; Hematocrit 27.2 % (35.3-44.9); Hemoglobin 8.4 g/dL (11.5-15.4); Immature Granulocytes % 0.2 % (0-4); Lymphocytes % 31.7 %; Mean Corpuscular HGB Conc 30.9 g/dL (31.6-35.5); Mean Corpuscular Hemoglobin 28.9 pg (28.0-33.3); Mean Corpuscular Volume 93.5 fL (83.0-100.0); Mean Platelet Volume 12.2 fL (9.4-12.4); Monocytes # 0.7 K/mcL (0.0-1.3); Monocytes % 10.3 %; Neutrophils # 3.6 K/mcL (1.6-8.9); Platelet Count 155 K/mcL (140-400); Red Blood Count 2.91 M/mcL (3.82-4.97); Red Cell Distribution Width 13.3 % (11.5-14.5); Segmented Neutrophils % 56.4 %; White Blood Count 6.4 K/mcL (4.3-11.1)
[2020-11-25 05:16] LABS: BUN/Creatinine Ratio 15 (6-26); Blood Urea Nitrogen 6 mg/dL (8-23); Calcium 7.9 mg/dL (8.6-10.3); Carbon Dioxide 25 mEq/L (23-29); Chloride 104 mEq/L (98-107); Glucose 74 mg/dL (70-105); Magnesium 1.6 mg/dL (1.6-2.6); Osmolality,Calculated 284 (280-300); Phosphorous 3.1 mg/dL (2.7-4.5); Potassium 2.8 mEq/L (3.5-5.1); Sodium 139 mEq/L (136-145); eGFR For African Americans > 60 (> 60); eGFR For Non-African Americans > 60 (> 60)
[2020-11-25] MEDS: 0.9 % Sodium Chloride 1,000 ML IVC SCH (06:56)
[2020-11-25] MEDS: cefTRIAXone 1,000 MG in Water for inj. (sterile) 10 ML IVP SCH (08:37)
[2020-11-25] MEDS: Topiramate 25 MG TABLET PO SCH ×2 (08:38→22:45)
[2020-11-25] MEDS: Gabapentin 300 MG CAPSULE PO SCH ×2 (08:38→22:45)
[2020-11-25] MEDS: *HR* Dextrose 50 % in Water (Vial) 50 ML VIAL IVP PRN (13:59)
[2020-11-25] MEDS ORDERED: Potassium Chloride 40 MEQ in D5% in 0.9% NACL 1,000 ML IVC SCH ×2 (14:15→18:00)
[2020-11-25] MEDS ORDERED: Potassium Chloride 20 MEQ, Lidocaine 1% 2 ML in 0.9 % Sodium Chloride 250 ML IVPB ONE (15:06)
[2020-11-25] MEDS: Pantoprazole 40 MG VIAL IVP SCH (17:45)
[2020-11-25] MEDS: Temazepam 15 MG CAPSULE PO SCH (22:45)
[2020-11-25] MEDS: traZODone 50 MG TABLET PO SCH (22:45)
[2020-11-26] MEDS: Insulin LISPRO 300 UNITS/3 ML VIAL SUBQ SCH ×2 (00:20→05:30)
[2020-11-26 04:07] LABS: Basophils % 0.4 %; Eosinophils # 0.1 K/mcL (0.0-0.6); Eosinophils % 2.4 %; Hematocrit 28.6 % (35.3-44.9); Immature Granulocytes % 0.2 % (0-4); Lymphocytes % 40.5 %; Mean Corpuscular HGB Conc 31.5 g/dL (31.6-35.5); Mean Corpuscular Volume 89.1 fL (83.0-100.0); Monocytes # 0.6 K/mcL (0.0-1.3); Neutrophils # 2.2 K/mcL (1.6-8.9); Platelet Count 167 K/mcL (140-400); Red Blood Count 3.21 M/mcL (3.82-4.97); Red Cell Distribution Width 13.3 % (11.5-14.5); Segmented Neutrophils % 43.5 %; White Blood Count 4.9 K/mcL (4.3-11.1)
[2020-11-26 04:26] LABS: BUN/Creatinine Ratio 11 (6-26); Blood Urea Nitrogen 4 mg/dL (8-23); Calcium 8.5 mg/dL (8.6-10.3); Carbon Dioxide 26 mEq/L (23-29); Chloride 109 mEq/L (98-107); Glucose 104 mg/dL (70-105); Magnesium 1.9 mg/dL (1.6-2.6); Osmolality,Calculated 295 (280-300); Phosphorous 2.8 mg/dL (2.7-4.5); Potassium 2.9 mEq/L (3.5-5.1); Sodium 144 mEq/L (136-145); eGFR For African Americans > 60 (> 60); eGFR For Non-African Americans > 60 (> 60)
[2020-11-26] MEDS: Pantoprazole 40 MG VIAL IVP SCH (05:35)
[2020-11-26] MEDS: Gabapentin 300 MG CAPSULE PO SCH (08:08)
[2020-11-26] MEDS: Topiramate 25 MG TABLET PO SCH (08:08)
[2020-11-26] MEDS: cefTRIAXone 1,000 MG in Water for inj. (sterile) 10 ML IVP SCH (08:09)
[2020-11-26 14:18] VITALS: BP 120/75
== END 2020-11-26 16:06 | disposition home or self-care (01) | DRG 381 ==
LOC: 3ANU 14:49 → EMEROOARM 14:49 → SUATTDRO 18:14 → 3ANU 19:56
PROVIDERS: ADMIT Internal Medicine; ATTEND Internal Medicine